=== PATIENT | female | born 1985 | race Caucasian/White ===

== ENCOUNTER 2016-11-20 16:10 | Emergency (ER) | payer MEDICAID ==
[2016-11-20] MEDS ORDERED: Albuterol 0.083% 2.5 MG/3 ML Neb Soln NEB ONE (16:21)
[2016-11-20] MEDS ORDERED: methylPREDNISolone Sodium Succinate 125 MG/2 ML SDV IVPUSH ONE (16:21)
--- NOTE | 2016-11-20 16:36 | EDM.PDOC ---
ED HISTORY OF PRESENT ILLNESS - General Chief Complaint: Respiratory Problem Stated Complaint: SOB, ASTHMA ATTACK Time Seen by Provider: 11/20/16 16:15 Source of Information: Reports: Patient History Limitations: Reports: No limitations - History of Present Illness INITIAL COMMENTS - FREE TEXT/NARRATIVE: She presents for evaluation and treatment of wheezing shortness of breath. Patient reports that she woke suddenly around 2 AM this morning with wheezing and shortness of breath. She feels she is having an asthma attack. She does have a history of asthma and is currently on an albuterol nebulizer and inhaler at home. She states that she has been using using it heavily today. She is not finding relief of her symptoms. She is complaining of shortness of breath and tachypnea. She reports wheezing. She denies any pain but reports exhaustion. She states that she has not been ill with any illnesses recently. patient denies any fevers, chills, coughs or cold symptoms. Patient is a current every day smoker. She states that she has not had any cigarettes today due to her asthma exacerbation. Severity: severe Location, General: Reports: chest - Related Data Allergies/ADRs: Allergies Allergy/AdvReac Type Severity Reaction Status Date / Time Penicillins Allergy Hives Verified 11/20/16 16:16 Home Meds: Home Meds Cetirizine HCl [Zyrtec] 10 mg PO DAILY 02/22/16 [History] Albuterol Sulfate [Proair Hfa] 1 inh INH Q4HR PRN 11/20/16 [History] Albuterol/Ipratropium [DuoNeb 3.0-0.5 MG/3 ML] 3 ml INH Q4HR PRN 11/20/16 [ History] Albuterol/Ipratropium [DuoNeb 3.0-0.5 MG/3 ML] 3 ml NEB Q6HRRT #28 neb 11/20/16 [Rx] Prednisone [IMW: predniSONE] 40 mg PO WITHBREAKFAST #10 tab 11/20/16 [Rx] Past Medical History HEENT History: Reports: Allergic rhinitis Respiratory History: Reports: Asthma - Infectious Disease History Infectious Disease History: Reports: Chicken pox - Past Surgical History GI Surgical History: Reports: Hernia, inguinal Social & Family History - Tobacco Use Smoking Status *Q: Current Every Day Smoker Years of Tobacco use: 15 Packs/Tins Daily: 0.5 Used Tobacco, but Quit: No - Caffeine Use Caffeine Use: Reports: Coffee, Soda - Recreational Drug Use Recreational Drug Use: No ED ROS GENERAL - Review of Systems Review Of Systems: See Below Constitutional: Reports: fatigue. Denies: fever Respiratory: Reports: Shortness of Breath, Wheezing. Denies: Cough Cardiovascular: Denies: Chest pain ED EXAM, GENERAL - Physical Exam Exam: See Below Exam Limited By: No limitations General Appearance: alert, WD/WN, moderate distress Ears: normal external exam Nose: normal inspection, nasal flaring Throat/Mouth: Normal inspection, Normal oropharynx, Normal voice Neck: normal inspection Respiratory/Chest: respiratory distress, rhonchi (expiratory thorught the lung bhakta), wheezing (generalized throughout all lung bhakta), accessory muscle use , retractions Cardiovascular: normal peripheral pulses, no murmur, tachycardia GI/Abdominal: soft, non tender Neurological: alert, oriented, normal cognition Psychiatric: normal affect, normal mood Skin Exam: Warm, Dry Course - Vital Signs Last Recorded V/S: Last Vital Signs Temp 36.9 C 11/20/16 16:19 Pulse 109 H 11/20/16 18:30 Resp 19 11/20/16 18:30 BP 120/79 11/20/16 18:30 Pulse Ox 96 11/20/16 18:30 - Orders/Labs/Meds Labs: Laboratory Tests 11/20/16 11/20/16 Range/Units 16:19 16:19 WBC 11.61 H (3.98-10.04) K/mm3 RBC 4.75 (3.98-5.22) M/mm3 Hgb 14.0 (11.2-15.7) gm/L Hct 43.5 (34.1-44.9) % MCV 91.6 (79.4-94.8) fl MCH 29.5 (25.6-32.2) pg MCHC 32.2 (32.2-35.5) g/dl RDW Std Deviation 44.3 (36.4-46.3) fL Plt Count 343 (182-369) K/mm3 MPV 9.6 (9.4-12.3) fl Neut % (Auto) 82.1 H (34.0-71.1) % Lymph % (Auto) 10.0 L (19.3-51.7) % [place] % (Auto) 5.7 (4.7-12.5) % Eos % (Auto) 1.7 (0.7-5.8) Baso % (Auto) 0.3 (0.1-1.2) % Neut # 9.53 H (1.56-6.13) K/mm3 Lymph # 1.16 L (1.18-3.74) K/mm3 [place] # 0.66 H (0.24-0.36) K/mm3 Eos # 0.20 (0.04-0.36) K/mm3 Baso # 0.04 (0.01-0.08) K/mm3 Sodium 141 (136-145) mEq/L Potassium 3.8 (3.5-5.1) mEq/L Chloride 104 (98-107) mEq/L Carbon Dioxide 27 (21-32) mEq/L Anion Gap 13.8 (5-15) BUN 7 (7-18) mg/dL Creatinine 1.0 (0.55-1.02) mg/dL Est Cr Clr Drug Dosing TNP Estimated GFR (MDRD) > 60 (>60) mL/min BUN/Creatinine Ratio 7.0 L (14-18) Glucose 107 H (74-106) mg/dL Calcium 8.9 (8.5-10.1) mg/dL Total Bilirubin 0.4 (0.2-1.0) mg/dL AST 11 L (15-37) U/L ALT 21 (14-59) U/L Alkaline Phosphatase 72 (46-116) U/L C-Reactive Protein 0.9 (<1.0) mg/dL Total Protein 7.8 (6.4-8.2) g/dl Albumin 3.9 (3.4-5.0) g/dl Globulin 3.9 gm/dL Albumin/Globulin Ratio 1.0 (1-2) Meds: Medications Discontinued Medications Generic Name Dose Route Start Last Admin Trade Name Freq PRN Reason Stop Dose Admin Albuterol 2.5 mg 11/20/16 16:21 11/20/16 16:28 Proventil Neb Soln NEB 11/20/16 16:22 2.5 mg ONETIME ONE Administration Albuterol/Ipratropium 3 ml 11/20/16 16:39 11/20/16 16:49 Duoneb 3.0-0.5 Mg/3 Ml NEB 11/20/16 16:40 3 ml ONETIME ONE Administration Sodium Chloride 1,000 mls @ 999 mls/hr 11/20/16 16:39 11/20/16 17:01 Normal Saline IV 11/20/16 17:39 999 mls/hr ONETIME ONE Administration Methylprednisolone Sodium Succinate 125 mg 11/20/16 16:21 11/20/16 16:26 Solu-Medrol IVPUSH 11/20/16 16:22 125 mg ONETIME ONE Administration - Radiology Interpretation Free Text/Narrative:: chest xray shows no acute intrathoracic process. - Re-Assessments/Exams Free Text/Narrative Re-Assessment/Exam: 11/20/16 18:12 Labs returned. WBC is 11.61, hgb is 14.0 and plts is 343 Sodium is 141, potassium is 3.8, chloride is 104. Anion gap is 13.8. Glucose is 107 CRP is 0.9 Reviewed the labs and xray with the patient. Patient feels improved at this time. Sats have been in the 90s during ER stay. Patient had albuterol and duoneb. Solumendrol given IV. Would like to go home. Will discharge with duonebs and prednisone. Tachypnea resolved. Tachycardia resolved. Departure - Departure Time of Disposition: 18:13 Disposition: Home, Self-Care 01 Condition: fair Clinical Impression: Exacerbation of asthma Prescriptions: Albuterol/Ipratropium [DuoNeb 3.0-0.5 MG/3 ML] 3 ml NEB Q6HRRT #28 neb Prednisone [IMW: predniSONE] 40 mg PO WITHBREAKFAST #10 tab Instructions: Asthma, Adult, [id number] Referrals: Suri Alex PA-C [Primary Care Provider] - Forms: ED Department Discharge Additional Instructions: Take the duo nebs as prescribed. One DuoNeb every 6 hours for the next 7 days. Take the prednisone as prescribed. 40 mg or 2 tabs once a day for the next 5 days. Start this medication tomorrow. may continue to use her albuterol nebulizer and inhaler as needed for shortness of breath. Follow-up with your primary care provider the end of this week or early next week if you continue to have symptoms. Please return to the ER should your symptoms change or worsen.
[2016-11-20] MEDS ORDERED: Albuterol/Ipratropium 3.0-0.5 MG/3 ML Neb Soln NEB ONE (16:39)
[2016-11-20] MEDS ORDERED: Sodium Chloride 0.9% 1,000 ML IV ONE (16:39)
[2016-11-20 18:39] VITALS: BP 120/79
--- NOTE | 2016-11-21 08:18 | CR ---
Chest: Two views of the chest were obtained. Comparison: No previous study. Heart size and mediastinum are normal. Lungs are clear. Bony structures are unremarkable. Impression: 1. Nothing acute is identified on two-view chest x-ray. Diagnostic code #1
== END 2016-11-20 18:30 | disposition home or self-care (01) ==
LOC: JD.ED 16:10
DX: J45.901 Unspecified asthma with (acute) exacerbation (principal); F17.210 Nicotine dependence, cigarettes, uncomplicated; Z88.0 Allergy status to penicillin; Z79.899 Other long term (current) drug therapy
CPT/HCPCS: 36415; 71020; 80053; 85025; 86140; 94640; 94664; 96361; 96374; 99285; J2930; J7040; 99284

== ENCOUNTER 2016-12-17 18:42 | Emergency (ER) | payer MEDICAID ==
[2016-12-17] MEDS ORDERED: Bupivacaine 0.5% 10 ML SDV INJECT ONE (19:20)
--- NOTE | 2016-12-17 19:38 | EDM.PDOC ---
ED HPI Trauma - General Chief Complaint: Upper Extremity Injury/Pain Stated Complaint: Painful finger Time Seen by Provider: 12/17/16 19:20 Source: Reports: Patient, RN notes reviewed History Limitations: Reports: No limitations - History of Present Illness INITIAL COMMENTS - FREE TEXT/NARRATIVE: 31 year old female presents to the ED with redness, pain, and swelling to her right middle finger nail bed. Symptoms started two days ago and have progressively worsened. No fever or chills. No injury. Last tetanus was 4 years ago. Allergies/ADRs: Allergies Penicillins Allergy (Verified 11/20/16 16:16) Hives Home Medications: Ambulatory Orders Cetirizine HCl [Zyrtec] 10 mg PO DAILY 02/22/16 [Confirmed 11/20/16] Albuterol Sulfate [Proair Hfa] 1 inh INH Q4HR PRN 11/20/16 [Confirmed 11/20/16] Albuterol/Ipratropium [DuoNeb 3.0-0.5 MG/3 ML] 3 ml INH Q4HR PRN 11/20/16 [ Confirmed 11/20/16] Albuterol/Ipratropium [DuoNeb 3.0-0.5 MG/3 ML] 3 ml NEB Q6HRRT #28 neb 11/20/16 Prednisone [IMW: predniSONE] 40 mg PO WITHBREAKFAST #10 tab 11/20/16 Doxycycline [Vibramycin] 100 mg PO BID #20 tablet 12/17/16 Mupirocin [Centany] 15 gm TP TID #1 oint...g. 12/17/16 Past Medical History HEENT History: Reports: Allergic rhinitis Respiratory History: Reports: Asthma Psychiatric History: Reports: Anxiety - Infectious Disease History Infectious Disease History: Reports: Chicken pox - Past Surgical History GI Surgical History: Reports: Hernia, inguinal Social & Family History - Tobacco Use Smoking Status *Q: Current Every Day Smoker Years of Tobacco use: 15 Packs/Tins Daily: 0.3 Used Tobacco, but Quit: No - Caffeine Use Caffeine Use: Reports: Coffee, Soda, Tea - Recreational Drug Use Recreational Drug Use: No Drug Use in Last 12 Months: Yes Review of Systems - Review of Systems Review Of Systems: See Below Constitutional: Reports: no symptoms. Denies: chills, fever Musculoskeletal: Reports: other (finger pain) Skin: Reports: erythema (right middle finger) Neurological: Reports: No Symptoms. Denies: Numbness, Tingling Trauma Exam - Physical Exam Exam: See Below Exam Limited By: No limitations General Appearance: Reports: alert, WD/WN, no apparent distress, anxious Respiratory Exam: Reports: no respiratory distress, lungs clear Cardiovascular: Reports: regular rate, rhythm Extremities: Reports: other (erythema and tenderness to DIP joint of right middle finger. ) Neurologic: Reports: no motor/sensory deficits, alert Skin: Reports: Other (Erythema and white discoloration to cuticle area of right middle finger) Course - Vital Signs Last Recorded V/S: Last Vital Signs Temp 98.0 F 12/17/16 19:00 Pulse 132 H 12/17/16 19:00 Resp 20 12/17/16 19:00 BP 157/117 H 12/17/16 19:00 Pulse Ox 99 12/17/16 19:00 - Orders/Labs/Meds Orders: Active Orders 24 hr Category Date Time Status CULTURE ANAEROBIC + SMEAR [RM] Stat Lab 12/17/16 19:38 Uncollected CULTURE WOUND [RM] Stat Lab 12/17/16 19:29 Ordered Meds: Medications Discontinued Medications Generic Name Dose Route Start Last Admin Trade Name Freq PRN Reason Stop Dose Admin Bupivacaine HCl 10 ml 12/17/16 19:20 12/17/16 19:26 Sensorcaine-Mpf 0.5% INJECT 12/17/16 19:21 10 ml ONETIME ONE Administration Doxycycline Hyclate 100 mg 12/17/16 19:51 Vibramycin PO 12/17/16 19:52 ONETIME ONE - Re-Assessments/Exams Free Text/Narrative Re-Assessment/Exam: Procedural consent was signed. Digital block performed to right middle finger. Then paronchyia incision and drainage was performed with 18 gauge needle to the radial side of the finger nail. Cultures sent. Patient is allergic to PCN, will start on doxycyline and bactroban ointment. Educated on wound care and return precautions. Departure - Departure Time of Disposition: 19:52 Disposition: Home, Self-Care 01 Condition: good Clinical Impression: Status post incision and drainage Paronychia of finger Qualifiers: Laterality: right Qualified Code(s): L03.011 - Cellulitis of right finger Prescriptions: Doxycycline [Vibramycin] 100 mg PO BID #20 tablet Mupirocin [Centany] 15 gm TP TID #1 oint...g. Referrals: Suri Alex PA-C [Primary Care Provider] - Forms: ED Department Discharge Additional Instructions: Soak the affected finger or toe in warm water for 20 minutes, 3 times a day. Cover with bandaid Your prescriptions were sent to [facility] Doxycycline 100mg twice a day for 10 days Mupirocin 2-3 times a day, apply after soaks - My Orders Last 24 Hours: My Active Orders 12/17/16 19:29 CULTURE WOUND [RM] Stat 12/17/16 19:38 CULTURE ANAEROBIC + SMEAR [RM] Stat - Assessment/Plan Last 24 Hours: My Active Orders 12/17/16 19:29 CULTURE WOUND [RM] Stat 12/17/16 19:38 CULTURE ANAEROBIC + SMEAR [RM] Stat
[2016-12-17] MEDS ORDERED: Doxycycline 100 MG Cap PO ONE (19:51)
[2016-12-17 20:11] VITALS: BP 144/74
== END 2016-12-17 20:00 | disposition home or self-care (01) ==
LOC: JD.ED 18:42
DX: L03.011 Cellulitis of right finger (principal); Z88.0 Allergy status to penicillin; J30.9 Allergic rhinitis, unspecified; J45.909 Unspecified asthma, uncomplicated; F41.9 Anxiety disorder, unspecified; F17.200 Nicotine dependence, unspecified, uncomplicated; Z79.899 Other long term (current) drug therapy
CPT/HCPCS: 10060; 64450; 87075; 87205; 99284; A9270; 87077; 87186; 99283-25

== ENCOUNTER 2017-05-15 12:17 | Emergency (ER) | payer MEDICAID ==
[2017-05-15 12:26] VITALS: BP 140/95
--- NOTE | 2017-05-15 13:20 | EDM.PDOC ---
ED HPI GENERAL MEDICAL PROBLEM - General Chief Complaint: Skin Complaint Stated Complaint: INSECT BITE TO LEFT LEG Time Seen by Provider: 05/15/17 13:00 Source of Information: Reports: Patient History Limitations: Reports: No Limitations - History of Present Illness INITIAL COMMENTS - FREE TEXT/NARRATIVE: 32-year-old female presents for evaluation treatment of erythema and discomfort to the posterior left lower leg. Reports she first noticed the symptoms yesterday. She reports yesterday she was helping family members move. She questions if she has been by a bug or spider. She has appreciated erythema, increased warmth and discomfort to the posterior left lower leg. She also reports a pustule that has opened and drained a small amount of purulent fluid. She reports associated symptoms of fevers, chills and nausea. She has not taken her temperature but has felt fevers. No treatment such as Tylenol, Motrin, etc. prior to arrival in the ER. No vomiting. Patient reports that she has had multiple boils and abscesses in the past. She is not a diabetic. Primary care provider is Suri Alex. Left Lower Leg Pain Score (Numeric/FACES): 7 - Related Data Allergies Allergy/AdvReac Type Severity Reaction Status Date / Time Penicillins Allergy Hives Verified 05/15/17 12:26 Home Meds: Home Meds Cetirizine HCl [Zyrtec] 10 mg PO DAILY 02/22/16 [History] Prednisone [IMW: predniSONE] 40 mg PO WITHBREAKFAST #10 tab 11/20/16 [Rx] Budesonide/Formoterol Fumarate [Symbicort 160-4.5 Mcg Inhaler] 2 puff IH BID 08/19 [History] Doxycycline [Vibramycin] 100 mg PO Q12HR #20 cap 05/15/17 [Rx] Fluticasone Propionate [Flonase] 1 gm NASBOTH DAILY 05/15/17 [History] PARoxetine [Paxil] 20 mg PO DAILY 05/15/17 [History] Past Medical History HEENT History: Reports: Allergic Rhinitis Respiratory History: Reports: Asthma Psychiatric History: Reports: Anxiety - Infectious Disease History Infectious Disease History: Reports: Chicken Pox - Past Surgical History GI Surgical History: Reports: Hernia, Inguinal Female Surgical History: Reports: Tubal Ligation Social & Family History - Tobacco Use Smoking Status *Q: Current Every Day Smoker Years of Tobacco use: 20 Packs/Tins Daily: 0.5 Used Tobacco, but Quit: No - Caffeine Use Caffeine Use: Reports: Coffee, Soda, Tea - Recreational Drug Use Recreational Drug Use: No Drug Use in Last 12 Months: Yes ED ROS GENERAL - Review of Systems Review Of Systems: See Below Constitutional: Reports: Fever, Chills GI/Abdominal: Reports: Nausea. Denies: Vomiting Skin: Reports: Erythema (left posterior lower leg), Lumps (left posterior lower leg pustule) ED EXAM, SKIN/RASH Exam: See Below Exam Limited By: No Limitations General Appearance: Alert, WD/WN, No Apparent Distress Respiratory/Chest: No Respiratory Distress, Lungs Clear, Normal Breath Sounds Cardiovascular: Normal Peripheral Pulses, Regular Rate, Rhythm, No Murmur Peripheral Pulses: 3+: Posterior Tibial (L), Posterior Tibial (R) Neurological: Alert, Oriented Psychiatric: Normal Affect, Normal Mood Skin: Warm, Dry, Erythema (approximately 15cm x 10 cm area of erythema to the posterior left lower leg with an approximate 3cm deeper reddened area with several small 3-7mm pustules in the center) Location, Skin: Lower Extremity, Left Characteristics: Papular, Erythematous. No: Necrotic Associated features: Warmth, Tenderness Course - Vital Signs Last Recorded V/S: Last Vital Signs Temp 36.7 C 05/15/17 12:22 Pulse 105 H 05/15/17 12:22 Resp 16 05/15/17 12:22 BP 140/95 H 05/15/17 12:22 Pulse Ox 98 05/15/17 12:22 - Re-Assessments/Exams Free Text/Narrative Re-Assessment/Exam: 05/15/17 13:17 Culture obtained. Area of erythema was outlined. I will start her on doxycycline have her follow-up with her primary care provider early next week for recheck. Discharge instructions this document. Departure - Departure Time of Disposition: 13:18 Disposition: Home, Self-Care 01 Condition: Good Clinical Impression: Cellulitis and abscess of leg - Discharge Information Prescriptions: Doxycycline [Vibramycin] 100 mg PO Q12HR #20 cap Instructions: Cellulitis, Adult, Abscess, [id number] Referrals: Suri Alex PA-C [Primary Care Provider] - Forms: ED Department Discharge Additional Instructions: Take the doxycycline as prescribed. 1 tab twice a day for 10 days. This has been escribed to [facility]. Doxycycline can cause photosensitivity. Make sure you wear sunscreen while you are in the sun or avoid sun if possible. Recommend taking the doxycycline with food. [id number] Tylenol or Motrin as needed for pain relief. Warm compress for about 10-15 minutes 3 or 4 times a day. Follow-up with your primary care provider next week for recheck of your symptoms. Expect the erythema to increase slightly before your symptoms improve. We would like to see back in the ER if you notice a significant change or any other concerning symptoms. Please return to the ER for any problems, questions or concerns.
== END 2017-05-15 13:25 | disposition home or self-care (01) ==
LOC: JD.ED 12:17
DX: L03.116 Cellulitis of left lower limb (principal); J45.909 Unspecified asthma, uncomplicated; F41.9 Anxiety disorder, unspecified; F17.210 Nicotine dependence, cigarettes, uncomplicated; Z98.51 Tubal ligation status; Z98.890 Other specified postprocedural states; Z79.899 Other long term (current) drug therapy; Z88.0 Allergy status to penicillin
CPT/HCPCS: 87070; 87077; 87186; 99283

== ENCOUNTER 2017-12-24 21:06 | Emergency (ER) | payer MEDICAID ==
[2017-12-24 21:18] VITALS: BP 161/114
[2017-12-24] MEDS ORDERED: Azithromycin 250 MG Tab PO STA (21:55)
[2017-12-24] MEDS ORDERED: Acetaminophen/HYDROcodone 325-5 MG Tab PO ONE (21:56)
--- NOTE | 2017-12-24 22:02 | EDM.PDOC ---
ED HPI GENERAL MEDICAL PROBLEM - General Chief Complaint: ENT Problem Stated Complaint: EAR HURT AND IS BLEEDING Time Seen by Provider: 12/24/17 21:29 Source of Information: Reports: Patient, Family () History Limitations: Reports: No Limitations - History of Present Illness INITIAL COMMENTS - FREE TEXT/NARRATIVE: The patient states that she developed cold-like symptoms around 12/16/2017. She had nasal congestion this morning. She blew her nose, and her right ear popped. There was no initial pain. The patient instilled hydrogen peroxide into the right ear canal this morning. The ear has been achy today. The patient states that around 21:30 this evening, she rolled over in bed, and had sudden severe pain to her right ear, and she found blood coming out of the ear canal. The patient states that she had frequent ear infections as a child, but has not had any problems since. The patient's PCP is Suri Alex. Right Ear Pain Score (Numeric/FACES): 7 - Related Data Allergies Allergy/AdvReac Type Severity Reaction Status Date / Time Penicillins Allergy Hives Verified 12/24/17 21:18 Home Meds: Home Meds Cetirizine HCl [Zyrtec] 10 mg PO DAILY 02/22/16 [History] Budesonide/Formoterol Fumarate [Symbicort 160-4.5 Mcg Inhaler] 2 puff IH BID 08/19 [History] Fluticasone Propionate [Flonase] 1 gm NASBOTH DAILY 05/15/17 [History] PARoxetine [Paxil] 20 mg PO DAILY 05/15/17 [History] Acetaminophen/HYDROcodone [Joseph 325-5 MG] 1 - 2 tab PO Q6H PRN #12 tablet 12/24 [Rx] Azithromycin [IJD: Azithromycin] 1 tab PO QPM #4 tab 12/24/17 [Rx] Past Medical History HEENT History: Reports: Allergic Rhinitis Respiratory History: Reports: Asthma Psychiatric History: Reports: Anxiety - Infectious Disease History Infectious Disease History: Reports: Chicken Pox - Past Surgical History HEENT Surgical History: Reports: Other (See Below) (Left external ear cyst excision) GI Surgical History: Reports: Hernia, Inguinal (left) Female Surgical History: Reports: Tubal Ligation Musculoskeletal Surgical History: Reports: Carpal Tunnel (right), Other (See Below) (Right wrist ganglion cyst excision) Social & Family History - Family History Family Medical History: Noncontributory - Tobacco Use Smoking Status *Q: Current Every Day Smoker Years of Tobacco use: 20 Packs/Tins Daily: 0.2 Packs/Tins Daily Comment: Down from 1.5 ppd - Caffeine Use Caffeine Use: Reports: Coffee, Soda, Tea - Alcohol Use Alcohol Use History: Yes Alcohol Use Frequency: Socially - Recreational Drug Use Recreational Drug Use: No - Living Situation & Occupation Living situation: Reports: , with Spouse Occupation: Unemployed ED ROS ENT - Review of Systems Review Of Systems: ROS reveals no pertinent complaints other than HPI. ED EXAM, ENT - Physical Exam Exam: See Below Exam Limited By: No Limitations General Appearance: Alert, WD/WN, Mild Distress (holding her right ear) Eye Exam: Bilateral Eye: Normal Inspection Ears: Other (Left ear canal and TM normal. There is blood in the right external auditory canal. Tympanic membrane is not visualized, suggesting extensive perforation) Nose: Normal Inspection, No Blood, Other (Bilateral nasal mucosal edema) Mouth/Throat: Normal Inspection, Normal Gums, Normal Lips, Normal Oropharynx, Normal Teeth Head: Atraumatic, Normocephalic Neck: Normal Inspection, Supple, Non-Tender, Full Range of Motion. No: Lymphadenopathy (L), Lymphadenopathy (R) Course - Vital Signs Last Recorded V/S: Last Vital Signs Temp 37.1 C 12/24/17 21:15 Pulse 78 12/24/17 21:15 Resp 18 12/24/17 21:15 BP 161/114 H 12/24/17 21:15 Pulse Ox 99 12/24/17 21:15 - Orders/Labs/Meds Meds: Medications Discontinued Medications Generic Name Dose Route Start Last Admin Trade Name Nathanq PRN Reason Stop Dose Admin Hydrocodone Bitart/Acetaminophen 2 tab 12/24/17 21:56 12/24/17 21:59 Joseph 325-5 Mg PO 12/24/17 21:57 2 tab ONETIME ONE Administration Azithromycin 500 mg 12/24/17 21:55 12/24/17 21:59 Zithromax PO 12/24/17 21:56 500 mg ONETIME STA Administration - Re-Assessments/Exams Free Text/Narrative Re-Assessment/Exam: 12/24/17 21:56 On examination, it appears that the patient has perforated her right tympanic membrane. I suspect this is due to right otitis media, and will therefore start the patient on an antibiotic. Because the patient reports a severe allergic reaction to penicillin, I will start her on azithromycin, and prescribe a five- day course. I will also prescribe some Joseph, although I would like the majority of her pain relief to be from ibuprofen. I will refer the patient to Dr. Schmidt, ENT. Departure - Departure Time of Disposition: 21:58 Disposition: Home, Self-Care 01 Condition: Fair Clinical Impression: Perforation of right tympanic membrane - Discharge Information Prescriptions: Acetaminophen/HYDROcodone [Joseph 325-5 MG] 1 - 2 tab PO Q6H PRN #12 tablet PRN Reason: Pain (Severe 7-10) Azithromycin [IJD: Azithromycin] 1 tab PO QPM #4 tab Instructions: Eardrum Perforation, [id number] Referrals: Suri Alex PA-C [Primary Care Provider] - Chema Schmidt MD [Ordering Only Provider] - Forms: ED Department Discharge Additional Instructions: You were seen in the emergency room for right ear pain and bleeding from your right ear canal. On examination, it appears that you have perforated your right tympanic membrane. This is likely due to an infection of your right middle ear. You have been started on the antibiotic azithromycin. A prescription has been given to. Take one tablet every evening, starting tomorrow evening, Sunday, . Finish the entire prescription unless told otherwise by your doctor. Take [id number] ibuprofen 2-3 tablets (400-600 mg) every 8 hours, with food, as needed for ear pain. Take one to 2 tablets Joseph up to every 6 hours, as needed for pain not relieved by ibuprofen. If you take Joseph, do not drive for 10 hours afterwards. Joseph may cause constipation, so consider taking a stool softener. Follow-up with the ENT Dr. Chema Schmidt at the next available appointment. If any other problems, please do not hesitate to return to the ER.
== END 2017-12-24 22:07 | disposition home or self-care (01) ==
LOC: JD.ED 21:06
DX: H72.91 Unspecified perforation of tympanic membrane, right ear (principal); J45.909 Unspecified asthma, uncomplicated; F41.9 Anxiety disorder, unspecified; F17.210 Nicotine dependence, cigarettes, uncomplicated; Z88.0 Allergy status to penicillin; Z79.899 Other long term (current) drug therapy
CPT/HCPCS: 99283; A9270

== ENCOUNTER 2018-09-20 16:30 | Emergency (ER) | payer MEDICAID ==
[2018-09-20 17:00] VITALS: BP 165/104
[2018-09-20] MEDS ORDERED: Sucralfate Suspension 1 GM/10 ML Cup PO ONE (17:20)
[2018-09-20] MEDS ORDERED: Sodium Chloride 0.9% 1,000 ML IV ONE (17:20)
[2018-09-20] MEDS ORDERED: Alum Hydrox/Mag Hydrox/Simeth 30 ML, Lidocaine 2% 15 ML PO ONE ×2 (17:20)
[2018-09-20] MEDS ORDERED: Pantoprazole 40 MG Vial IVPUSH ONE (17:20)
--- NOTE | 2018-09-20 17:28 | EDM.PDOC ---
ED HPI GENERAL MEDICAL PROBLEM - General Chief Complaint: Abdominal Pain Stated Complaint: ABDOMINAL PAIN/VOMITING Time Seen by Provider: 09/20/18 17:02 Source of Information: Reports: Patient History Limitations: Reports: No Limitations - History of Present Illness INITIAL COMMENTS - FREE TEXT/NARRATIVE: Patient is a 33-year-old female presents ED complaining of epigastric discomfort. States this is been ongoing issue for the past year. States over the past few weeks the symptoms have grown increasingly worse. She states she has increased acid reflux with eating and drinking. She's been mildly nauseated with no emesis. She has been taking Zantac on intermittent basis. As a recent she's been taking a lot more Tums and Rolaids. She did go to the walk-in clinic today and they did obtain some basic labs and EKG. They sent the patient here for further examination with concerns this may be related to her heart. EKG showed some slight depression in the anterior leads. In addition the blood work indicated she had a low potassium and low hemoglobin. The hemoglobin has decreased from the previous blood work was one year ago. Patient denies any dark tarry stools, vomiting of blood, bloody stool, fever, shortness breath, chest pain, dysuria, hematuria, dizziness, palpitations, or any additional complaints. She's not been taking excessive amounts of NSAIDs. Nor does she consume alcohol on a regular basis. She smokes one quarter pack of cigarettes a day. Caffeine use is minimal. There has been no recent weight loss, night sweats , dysuria, or any additional concerns. She has no history of gastritis, bleeding ulcers, and/or H. pylori. She has never had EGD or colonoscopy. Upper Abdomen Pain Score (Numeric/FACES): 7 - Related Data Allergies Allergy/AdvReac Type Severity Reaction Status Date / Time Penicillins Allergy Hives Verified 12/24/17 21:18 Home Meds: Home Meds Budesonide/Formoterol Fumarate [Symbicort 160-4.5 Mcg Inhaler] 2 puff IH BID 08/19 [History] Albuterol [Proventil HFA] 2 puff INH ASDIRECTED 09/20/18 [History] Calcium Carbonate [Tums] 1 tab PO ASDIRECTED 09/20/18 [History] Cetirizine [ZyrTEC] 10 mg PO DAILY 09/20/18 [History] Clindamycin HCl 150 mg PO QID #40 capsule 09/20/18 [Rx] Ferrous Sulfate 325 mg PO QAM #30 tablet 09/20/18 [Rx] LORazepam [Ativan] 0.5 mg PO ASDIRECTED 09/20/18 [History] Magnesium Oxide [Magnesium] 400 mg PO QAM #30 capsule 09/20/18 [Rx] Ondansetron [Zofran ODT] 4 mg PO Q6H PRN #10 tab.dis 09/20/18 [Rx] Pantoprazole Sodium [Protonix] 40 mg PO QAM #30 tablet.dr 09/20/18 [Rx] Potassium Chloride 20 meq PO BID #60 tablet.er 09/20/18 [Rx] Sucralfate [Carafate] 1 gm PO QID #20 tablet 09/20/18 [Rx] Past Medical History HEENT History: Reports: Allergic Rhinitis Respiratory History: Reports: Asthma Psychiatric History: Reports: Anxiety - Infectious Disease History Infectious Disease History: Reports: Chicken Pox - Past Surgical History HEENT Surgical History: Reports: Other (See Below) GI Surgical History: Reports: Hernia, Inguinal Female Surgical History: Reports: Tubal Ligation Musculoskeletal Surgical History: Reports: Carpal Tunnel, Other (See Below) Social & Family History - Family History Family Medical History: Noncontributory - Tobacco Use Smoking Status *Q: Current Every Day Smoker Years of Tobacco use: 20 Packs/Tins Daily: 0.3 - Caffeine Use Caffeine Use: Reports: Coffee, Soda, Tea - Recreational Drug Use Recreational Drug Use: No - Living Situation & Occupation Living situation: Reports: , with Spouse Occupation: Unemployed ED ROS GENERAL - Review of Systems Review Of Systems: ROS reveals no pertinent complaints other than HPI. ED EXAM, GI/ABD - Physical Exam Exam: See Below Exam Limited By: No Limitations General Appearance: Alert, WD/WN, Mild Distress Ears: Hearing Grossly Normal Nose: Normal Inspection Throat/Mouth: Normal Voice, No Airway Compromise Head: Atraumatic, Normocephalic Neck: Normal Inspection, Supple Respiratory/Chest: No Respiratory Distress, Lungs Clear, Normal Breath Sounds, No Accessory Muscle Use, Chest Non-Tender Cardiovascular: Normal Peripheral Pulses, Regular Rate, Rhythm, No Murmur GI/Abdominal Exam: Soft, No Organomegaly, No Distention, No Mass, Tender ( epigastric, LUQ, LLQ), Abnormal Bowel Sounds. No: Distended, Guarding, Rigid, Rebound Back Exam: Normal Inspection. No: CVA Tenderness (L), CVA Tenderness (R) Extremities: Normal Inspection, Normal Range of Motion, Non-Tender, No Pedal Edema, Normal Capillary Refill Neurological: Alert, Oriented, CN II-XII Intact, Normal Cognition, Normal Gait, No Motor/Sensory Deficits Psychiatric: Normal Affect, Normal Mood Course - Vital Signs Last Recorded V/S: Last Vital Signs Temp 99.5 F 09/20/18 16:58 Pulse 110 H 09/20/18 16:58 Resp 20 09/20/18 16:58 BP 165/104 H 09/20/18 16:58 Pulse Ox 99 09/20/18 16:58 - Orders/Labs/Meds Labs: Laboratory Tests 09/20/18 09/20/18 09/20/18 Range/Units 17:30 17:30 17:30 WBC (3.98-10.04) K/mm3 RBC (3.98-5.22) M/mm3 Hgb (11.2-15.7) gm/L Hct (34.1-44.9) % MCV (79.4-94.8) fl MCH (25.6-32.2) pg MCHC (32.2-35.5) g/dl RDW Std Deviation (36.4-46.3) fL Plt Count (182-369) K/mm3 MPV (9.4-12.3) fl Neutrophils % (Manual) (40-60) % Band Neutrophils % (0-10) % Lymphocytes % (Manual) (20-40) % Atypical Lymphs % % Monocytes % (Manual) (2-10) % Eosinophils % (Manual) (0.7-5.8) % Basophils % (Manual) (0.1-1.2) Platelet Estimate Plt Morphology Comment Hypochromasia Anisocytosis Microcytosis RBC Morph Comment PT (9.5-12.1) SECONDS INR APTT (24-31) SECONDS Sodium 139 (136-145) mEq/L Potassium 2.6 L (3.5-5.1) mEq/L Chloride 95 L (98-107) mEq/L Carbon Dioxide 34 H (21-32) mEq/L Anion Gap 12.6 (5-15) BUN 8 (7-18) mg/dL Creatinine 1.1 H (0.55-1.02) mg/dL Est Cr Clr Drug Dosing 72.01 mL/min Estimated GFR (MDRD) 57 (>60) mL/min BUN/Creatinine Ratio 7.3 L (14-18) Glucose 101 (74-106) mg/dL Calcium 11.2 H (8.5-10.1) mg/dL Magnesium (1.8-2.4) mg/dl Total Bilirubin 0.3 (0.2-1.0) mg/dL AST 17 (15-37) U/L ALT 22 (14-59) U/L Alkaline Phosphatase 102 (46-116) U/L Troponin I < 0.017 (0.00-0.056) ng/mL C-Reactive Protein 0.6 (<1.0) mg/dL Total Protein 8.2 (6.4-8.2) g/dl Albumin 3.6 (3.4-5.0) g/dl Globulin 4.6 gm/dL Albumin/Globulin Ratio 0.8 L (1-2) Lipase 163 (73-393) U/L Urine Color Yellow (Yellow) Urine Appearance Slt cloudy H (Clear) Urine pH 8.5 H (5.0-8.0) Ur Specific [place] 1.020 (1.005-1.030) Urine Protein Negative (Negative) Urine Glucose (UA) Negative (Negative) Urine Ketones Negative (Negative) Urine Occult Blood Negative (Negative) Urine Nitrite Negative (Negative) Urine Bilirubin Negative (Negative) Urine Urobilinogen 0.2 (0.2-1.0) Ur Leukocyte Esterase Negative (Negative) Urine RBC 0-5 (0-5) /hpf Urine WBC 0-5 (0-5) /hpf Ur Epithelial Cells 5-10 H (0-5) /hpf Amorphous Sediment Moderate H (NOT SEEN) /hpf Urine Bacteria Few (FEW) /hpf Urine Mucus Not seen (FEW) /hpf Urine HCG, Qual Negative (NEGATIVE) 09/20/18 09/20/18 09/20/18 Range/Units 17:30 17:30 17:30 WBC 7.68 (3.98-10.04) K/mm3 RBC 4.61 (3.98-5.22) M/mm3 Hgb 9.9 L (11.2-15.7) gm/L Hct 34.2 (34.1-44.9) % MCV 74.2 L (79.4-94.8) fl MCH 21.5 L (25.6-32.2) pg MCHC 28.9 L (32.2-35.5) g/dl RDW Std Deviation 43.6 (36.4-46.3) fL Plt Count 494 H (182-369) K/mm3 MPV 9.5 (9.4-12.3) fl Neutrophils % (Manual) 72 H (40-60) % Band Neutrophils % 0 (0-10) % Lymphocytes % (Manual) 21 (20-40) % Atypical Lymphs % 0 % Monocytes % (Manual) 6 (2-10) % Eosinophils % (Manual) 1 (0.7-5.8) % Basophils % (Manual) 0 L (0.1-1.2) Platelet Estimate Increased Plt Morphology Comment See note Hypochromasia 1+ slight Anisocytosis 1+ slight Microcytosis 1+ slight RBC Morph Comment Not Reportable PT 9.9 (9.5-12.1) SECONDS INR < 0.93 APTT 24 (24-31) SECONDS Sodium (136-145) mEq/L Potassium (3.5-5.1) mEq/L Chloride (98-107) mEq/L Carbon Dioxide (21-32) mEq/L Anion Gap (5-15) BUN (7-18) mg/dL Creatinine (0.55-1.02) mg/dL Est Cr Clr Drug Dosing mL/min Estimated GFR (MDRD) (>60) mL/min BUN/Creatinine Ratio (14-18) Glucose (74-106) mg/dL Calcium (8.5-10.1) mg/dL Magnesium 1.3 L (1.8-2.4) mg/dl Total Bilirubin (0.2-1.0) mg/dL AST (15-37) U/L ALT (14-59) U/L Alkaline Phosphatase (46-116) U/L Troponin I (0.00-0.056) ng/mL C-Reactive Protein (<1.0) mg/dL Total Protein (6.4-8.2) g/dl Albumin (3.4-5.0) g/dl Globulin gm/dL Albumin/Globulin Ratio (1-2) Lipase (73-393) U/L Urine Color (Yellow) Urine Appearance (Clear) Urine pH (5.0-8.0) Ur Specific [place] (1.005-1.030) Urine Protein (Negative) Urine Glucose (UA) (Negative) Urine Ketones (Negative) Urine Occult Blood (Negative) Urine Nitrite (Negative) Urine Bilirubin (Negative) Urine Urobilinogen (0.2-1.0) Ur Leukocyte Esterase (Negative) Urine RBC (0-5) /hpf Urine WBC (0-5) /hpf Ur Epithelial Cells (0-5) /hpf Amorphous Sediment (NOT SEEN) /hpf Urine Bacteria (FEW) /hpf Urine Mucus (FEW) /hpf Urine HCG, Qual (NEGATIVE) Meds: Medications Discontinued Medications Generic Name Dose Route Start Last Admin Trade Name Freq PRN Reason Stop Dose Admin Al Hydroxide/Mg Hydroxide 30 0 ml 09/20/18 17:20 09/20/18 17:54 ml/ Lidocaine HCl 15 ml PO 09/20/18 17:21 45 ml ONETIME ONE Administration Diatrizoate Meglum/Diatrizoate Sod 90 ml 09/20/18 18:48 09/20/18 19:26 Gastrografin 37% PO 09/20/18 18:49 90 ml ONETIME ONE Administration Sodium Chloride 1,000 mls @ 250 mls/hr 09/20/18 17:20 09/20/18 17:51 Normal Saline IV 09/20/18 21:19 250 mls/hr ONETIME ONE Administration Potassium Chloride 10 meq/ 100 mls @ 100 mls/hr 09/20/18 19:14 09/20/18 19:38 Premix IV 09/20/18 20:13 100 mls/hr ASDIRECTED ONE Administration Potassium Chloride 10 meq/ 100 mls @ 100 mls/hr 09/20/18 19:14 09/20/18 20:48 Premix IV 09/20/18 20:13 100 mls/hr Q1H ONE Administration Magnesium Sulfate 2 gm/ Premix 50 mls @ 25 mls/hr 09/20/18 19:49 09/20/18 20: 17 IV 09/20/18 21:48 25 mls/hr ONETIME ONE Administration Iopamidol 100 ml 09/20/18 18:48 09/20/18 19:26 Isovue-300 (61%) IVPUSH 09/20/18 18:49 100 ml ONETIME ONE Administration Metoclopramide HCl 7.5 mg 09/20/18 19:12 09/20/18 19:17 Reglan IVPUSH 09/20/18 19:13 7.5 mg ONETIME ONE Administration Pantoprazole Sodium 40 mg 09/20/18 17:20 09/20/18 17:52 Protonix Iv IVPUSH 09/20/18 17:21 40 mg ONETIME ONE Administration Sodium Chloride 10 ml 09/20/18 17:20 09/20/18 19:26 Saline Flush FLUSH 10 ml ASDIRECTED PRN Administration Keep Vein Open Sucralfate 1 gm 09/20/18 17:20 09/20/18 17:53 Carafate PO 09/20/18 17:21 1 gm ONETIME ONE Administration - Re-Assessments/Exams Free Text/Narrative Re-Assessment/Exam: Patient has discomfort to the epigastric, left upper quadrant, left lower quadrant. She's been nauseated and having multiple episodes of emesis. In addition today labs indicated hemoglobin has dropped from 12-9.9. She's had no dark tarry stools, bloody stools, or any other concerns for GI bleed. She has no history of bleeding in the past. She has no IV will be obtained with normal saline, Protonix 40 mg IVP, Carafate 1 g by mouth, and GI cocktail by mouth. Pain is moderate in intensity. Initial labs and studies will include: CBC, chem 14, CRP, lipase, UA, hCG, and CT of the abdomen and pelvis with oral and IV contrast. EKG obtained [facility] at [facility] indicated sinus tachycardia rate of 108, QTC of 516, normal IN interval, mild ST depression in anterior leads. EKG were repeated here in the ED. Labs reviewed: Blood cell count 7.68, hemoglobin 9.9, platelet count 494, potassium 2.6, CO2 34, AG 12.6, creatinine 1.1, calcium is 11.2, troponin within normal limits, lipase normal. Repeat EKG sinus tachycardia rate of [address] changes noted. QTC 471. IN 141. I ordered 2 potassium riders and serum magnesium level. Stool Hemoccult came back faintly positive for blood. UA slightly cloudy appearance, pH 8.5, urine epithelial cells 5-10, amorphous sediment moderate. 1914 per nursing staff patient is nauseated after drinking the oral contrast. I ordered Reglan 7.5 mg IV. Magnesium 1.3. Ordered [address] of the abdomen and pelvis results are not present at this time. 09/20/18 20:08 CT of the abdomen and pelvis impression: Moderately large hiatal hernia. Other incidental findings. Nothing acute is appreciated on CT study of the abdomen and pelvis. 2016 Reassessment, patient has really no significant complaints at this time. I did discuss results of CT study with the patient. During her conversation she was wondering if she can be discharged home with a prescription for an antibiotic for a dental infection. She does have a small apical abscess to the 31 tooth on the lateral side.Once potassium and magnesium has been infused. Patient will be discharged home with instructions for dental infection, hypomagnesium, hypokalemia, and suspected upper GI bleed with positive Hemoccult test. Patient to be discharged with prescription for Carafate, potassium chloride, Slow-Mag, Zofran, clindamycin, and ferrous sulfate. 2150 Patients BP stable. HR 98 variable. She has no complaints at this time. Denies recreational drug use. Potassium drip still running. Once completed she will be discharged home. Departure - Departure Time of Disposition: 21:51 Disposition: Home, Self-Care 01 Condition: Good Clinical Impression: Upper GI bleed, Hypokalemia, Hypomagnesemia, Dental infection, Hypercalcemia Anemia Qualifiers: Anemia type: unspecified type Qualified Code(s): D64.9 - Anemia, unspecified Gastritis Qualifiers: Gastritis type: unspecified gastritis Chronicity: acute Gastritis bleeding: with bleeding Qualified Code(s): K29.01 - Acute gastritis with bleeding - Discharge Information Prescriptions: Clindamycin HCl 150 mg PO QID #40 capsule Ferrous Sulfate 325 mg PO QAM #30 tablet Magnesium Oxide [Magnesium] 400 mg PO QAM #30 capsule Ondansetron [Zofran ODT] 4 mg PO Q6H PRN #10 tab.dis PRN Reason: Nausea/Vomiting Pantoprazole Sodium [Protonix] 40 mg PO QAM #30 tablet.dr Potassium Chloride 20 meq PO BID #60 tablet.er Sucralfate [Carafate] 1 gm PO QID #20 tablet Instructions: Gastritis, Adult, [id number], Hypercalcemia, Upper Gastrointestinal Bleeding, Dental Abscess, [id number], Hypomagnesemia, Hypokalemia, Nausea and Vomiting, Adult, [id number] Referrals: Suri Alex PA-C [Primary Care Provider] - Forms: ED Department Discharge Additional Instructions: Please take the potassium, magnesium, iron replacement, Carafate, Protonix, clindamycin, and Zofran as prescribed. Call and make an appointment to see a general surgeon of your choice for EGD and colonoscopy. Follow-up with your PCP this coming week for reevaluation to recheck chemistry panel for low potassium , low magnesium, and further iron studies. See a dentist for definitive treatment for dental abscess to the light lower jaw. Stay away from any foods or beverages that cause increased aggravation to your stomach. Refrain from utilizing ibuprofen, Aleve, or any other form of NSAIDs. Refrain from ingestion of Tums or Rolaids.
[2018-09-20] MEDS: Sodium Chloride 0.9% 10 ML Syringe FLUSH PRN ×2 (17:56→19:26)
[2018-09-20] MEDS ORDERED: Diatrizoate Meglumine/Diatrizoate Sodium 37% 120 ML Bottle PO ONE (18:48)
[2018-09-20] MEDS ORDERED: Iopamidol 612 MG/ML 100 ML Bottle IVPUSH ONE (18:48)
[2018-09-20] MEDS ORDERED: Metoclopramide 10 MG/2 ML SDV IVPUSH ONE (19:12)
[2018-09-20] MEDS ORDERED: Potassium Chloride 10 MEQ in Premix Bag 1 BAG IV ONE ×4 (19:14)
--- NOTE | 2018-09-20 19:45 | CT ---
CT abdomen and pelvis Technique: Multiple axial sections were obtained from above the dome of the diaphragm inferiorly to the pubic symphysis. Intravenous and oral contrast was utilized. Delayed images were obtained of the bladder. Comparison: No prior abdominal imaging is available. Findings: Small portion of the visualized lung bases are clear. Moderately large hiatal hernia is seen. Small low density finding is seen within the dome of the right lobe of the liver measuring approximately 6 mm compatible with small cyst. No additional abnormality is identified within the liver. Spleen appears within normal limits. Adrenal glands show no nodule. Kidneys show symmetric contrast enhancement without hydronephrosis or mass. Pancreas is within normal limits. Gallbladder contains no calcified gallstones. Aorta shows no aneurysm. No retroperitoneal adenopathy or mesenteric abnormalities are seen. No pelvic mass or adenopathy is noted. Appendix is seen which is normal in size. Incidental surgical clips are seen within the pelvis. Delayed images shows a small amount of contrast within the bladder. Bone window settings were reviewed which shows disc space narrowing and vacuum phenomena within the L5-S1 disc. No acute osseous abnormality is seen. Impression: 1. Moderately large hiatal hernia. Other incidental findings. 2. Nothing acute is appreciated on CT study of the abdomen and pelvis. Diagnostic code #2
[2018-09-20] MEDS ORDERED: Magnesium Sulfate/Water 2 GM in Premix Bag 1 BAG IV ONE (19:49)
== END 2018-09-20 22:53 | disposition home or self-care (01) ==
LOC: JD.ED 16:30
DX: K29.01 Acute gastritis with bleeding (principal); D64.9 Anemia, unspecified; E87.6 Hypokalemia; E83.42 Hypomagnesemia; K04.7 Periapical abscess without sinus; E83.52 Hypercalcemia; Z88.0 Allergy status to penicillin; J45.909 Unspecified asthma, uncomplicated; F17.210 Nicotine dependence, cigarettes, uncomplicated; Z79.899 Other long term (current) drug therapy
CPT/HCPCS: 36415; 74177; 80053; 81001; 81025; 83690; 83735; 84484; 85007; 85027; 85610; 85730; 86140; 93005; 99284; A9270; C9113; J2765; J3480; J7040; Q9963; Q9967; J3475

== ENCOUNTER 2019-02-05 19:52 | Emergency (ER) | payer MEDICAID ==
[2019-02-05] MEDS ORDERED: Albuterol/Ipratropium 3.0-0.5 MG/3 ML Neb Soln NEB STA (20:09)
[2019-02-05 20:12] VITALS: BP 146/119
--- NOTE | 2019-02-05 20:18 | EDM.PDOC ---
ED HPI GENERAL MEDICAL PROBLEM - General Chief Complaint: Respiratory Problem Stated Complaint: VOMITING SHORT OF BREATH Time Seen by Provider: 02/05/19 20:16 - History of Present Illness INITIAL COMMENTS - FREE TEXT/NARRATIVE: 33-year-old female presents emergency room with a one-day history of significant nausea and vomiting. She just can't stop her asthma so irritated and her stomach is hurting she has not been able to keep her Protonix to him today. She's not aware of any fevers or chills. Her asthma hasn't been getting worse but she has not been coughing up anything. She has some mild discomfort in her upper abdomen made much worse just before and after throwing up she just can't keep anything down at this point - Related Data Allergies Allergy/AdvReac Type Severity Reaction Status Date / Time Penicillins Allergy Hives Verified 02/05/19 20:12 Home Meds: Home Meds Budesonide/Formoterol Fumarate [Symbicort 160-4.5 Mcg Inhaler] 2 puff IH BID 08/19 [History] Albuterol [Proventil HFA] 2 puff INH ASDIRECTED 09/20/18 [History] Calcium Carbonate [Tums] 1 tab PO ASDIRECTED 09/20/18 [History] Cetirizine [ZyrTEC] 10 mg PO DAILY 09/20/18 [History] Clindamycin HCl 150 mg PO QID #40 capsule 09/20/18 [Rx] Ferrous Sulfate 325 mg PO QAM #30 tablet 09/20/18 [Rx] LORazepam [Ativan] 0.5 mg PO ASDIRECTED 09/20/18 [History] Magnesium Oxide [Magnesium] 400 mg PO QAM #30 capsule 09/20/18 [Rx] Ondansetron [Zofran ODT] 4 mg PO Q6H PRN #10 tab.dis 09/20/18 [Rx] Pantoprazole Sodium [Protonix] 40 mg PO QAM #30 tablet. 09/20/18 [Rx] Potassium Chloride 20 meq PO BID #60 tablet.er 09/20/18 [Rx] Sucralfate [Carafate] 1 gm PO QID #20 tablet 09/20/18 [Rx] Ondansetron [Zofran ODT] 4 mg PO Q6H PRN #6 tab.dis 02/05/19 [Rx] Past Medical History HEENT History: Reports: Allergic Rhinitis Respiratory History: Reports: Asthma Psychiatric History: Reports: Anxiety - Infectious Disease History Infectious Disease History: Reports: Chicken Pox - Past Surgical History HEENT Surgical History: Reports: Other (See Below) GI Surgical History: Reports: Hernia, Inguinal Female Surgical History: Reports: Tubal Ligation Musculoskeletal Surgical History: Reports: Carpal Tunnel, Other (See Below) Social & Family History - Family History Family Medical History: Noncontributory - Caffeine Use Caffeine Use: Reports: Coffee, Soda, Tea - Living Situation & Occupation Living situation: Reports: , with Spouse Occupation: Unemployed ED ROS GENERAL - Review of Systems Review Of Systems: See Below Constitutional: Reports: No Symptoms. Denies: Fever, Chills HEENT: Reports: No Symptoms Respiratory: Reports: Wheezing, Cough (Mild) Cardiovascular: Reports: No Symptoms Endocrine: Reports: No Symptoms GI/Abdominal: Reports: No Symptoms, Nausea, Vomiting. Denies: Constipation, Diarrhea Skin: Reports: No Symptoms Neurological: Reports: No Symptoms Psychiatric: Reports: No Symptoms Hematologic/Lymphatic: Reports: No Symptoms Immunologic: Reports: No Symptoms ED EXAM, GENERAL - Physical Exam Exam: See Below Exam Limited By: No Limitations General Appearance: Alert, No Apparent Distress Head: Atraumatic, Normocephalic Neck: Normal Inspection, Supple, Non-Tender, Full Range of Motion Respiratory/Chest: No Respiratory Distress, Lungs Clear, Normal Breath Sounds Cardiovascular: Normal Peripheral Pulses, Regular Rate, Rhythm, No Edema, Tachycardia GI/Abdominal: Normal Bowel Sounds, Soft, Other (Across the upper abdomen). No: Guarding, Rigid, Rebound, Tender Neurological: Alert, Oriented Psychiatric: Normal Affect, Normal Mood Skin Exam: Warm, Intact Lymphatic: No Adenopathy Course - Vital Signs Last Recorded V/S: Last Vital Signs Temp 37.1 C 02/05/19 20:10 Pulse 130 H 02/05/19 20:10 Resp 26 H 02/05/19 20:10 BP 146/119 H 02/05/19 20:10 Pulse Ox 98 02/05/19 20:14 - Orders/Labs/Meds Orders: Active Orders 24 hr Category Date Time Status RT Aerosol Therapy [RC] ASDIRECTED Care 02/05/19 20:10 Active Lactated Ringers [Ringers, Lactated] 2,000 ml Med 02/05/19 20:41 Active IV .BOLUS Medication Orders Lactated Ringer's (Ringers, Lactated) 2,000 mls @ 999 mls/hr IV .BOLUS ONE Stop: 02/05/19 22:41 Last Admin: 02/05/19 21:33 Dose: 999 mls/hr Labs: Laboratory Tests 02/05/19 Range/Units 21:10 HCG, Qual Negative (NEGATIVE) Meds: Medications Generic Name Dose Route Start Last Admin Trade Name Freq PRN Reason Stop Dose Admin Lactated Ringer's 2,000 mls @ 999 mls/hr 02/05/19 20:41 02/05/19 21:33 Ringers, Lactated IV 02/05/19 22:41 999 mls/hr .BOLUS ONE Administration Discontinued Medications Generic Name Dose Route Start Last Admin Trade Name Freq PRN Reason Stop Dose Admin Albuterol/Ipratropium 3 ml 02/05/19 20:09 02/05/19 20:14 Duoneb 3.0-0.5 Mg/3 Ml NEB 02/05/19 20:10 3 ml ONETIME STA Administration Ondansetron HCl 4 mg 02/05/19 20:41 02/05/19 21:34 Zofran IVPUSH 02/05/19 20:42 4 mg ONETIME ONE Administration Ondansetron HCl 4 mg 02/05/19 22:27 Zofran Odt PO 02/05/19 22:28 ONETIME ONE Pantoprazole Sodium 40 mg 02/05/19 21:27 02/05/19 21:37 Protonix Iv IVPUSH 02/05/19 21:28 40 mg ONETIME ONE Administration - Re-Assessments/Exams Free Text/Narrative Re-Assessment/Exam: 02/05/19 22:28 Patient is doing much better at this time and really wants to go home she sounds 2 L of IV fluids in the form of LR. Departure - Departure Time of Disposition: 22:28 Disposition: Home, Self-Care 01 Clinical Impression: Gastroenteritis - Discharge Information Prescriptions: Ondansetron [Zofran ODT] 4 mg PO Q6H PRN #6 tab.dis PRN Reason: Nausea/Vomiting Referrals: Suri Alex PA-C [Primary Care Provider] - Forms: ED Department Discharge Additional Instructions: Return to the emergency room with any questions problems worsening symptoms. Uses Zofran as needed to control her nausea. Clear liquid diet for the next 24 hours then slowly advance as tolerated. Return to the emergency room in 12-24 hours if not doing better certainly come in sooner if getting worse - My Orders Last 24 Hours: My Active Orders 02/05/19 20:41 Lactated Ringers [Ringers, Lactated] 2,000 ml IV .BOLUS - Assessment/Plan Last 24 Hours: My Active Orders 02/05/19 20:41 Lactated Ringers [Ringers, Lactated] 2,000 ml IV .BOLUS
[2019-02-05] MEDS ORDERED: Ondansetron 4 MG/2 ML SDV IVPUSH ONE (20:41)
[2019-02-05] MEDS ORDERED: Pantoprazole 40 MG in Sodium Chloride 0.9% 100 ML IV ONE (20:41)
[2019-02-05] MEDS ORDERED: Lactated Ringers 2,000 ML IV ONE (20:41)
[2019-02-05] MEDS ORDERED: Pantoprazole 40 MG Vial IVPUSH ONE (21:27)
[2019-02-05] MEDS ORDERED: Ondansetron 4 MG Tab.DIS PO ONE (22:27)
== END 2019-02-05 22:40 | disposition home or self-care (01) ==
LOC: JD.ED 19:52
DX: K52.9 Noninfective gastroenteritis and colitis, unspecified (principal); F41.9 Anxiety disorder, unspecified; J45.909 Unspecified asthma, uncomplicated; Z79.899 Other long term (current) drug therapy; Z88.0 Allergy status to penicillin
CPT/HCPCS: 36415; 84703; 94640; 96361; 96374; 96375; 99284; C9113; J2405; J7120; 99283; J7620-GY

== ENCOUNTER 2020-05-26 16:26 | Emergency (ER) | payer MEDICAID, OTHER ==
[2020-05-26] MEDS ORDERED: fentaNYL 100 MCG/2 ML SDV IVPUSH ONE ×3 (16:56→17:45)
[2020-05-26 17:04] VITALS: BP 113/80; PULSE 100
[2020-05-26] MEDS ORDERED: Midazolam 1 MG/ML 2 ML SDV IVPUSH ONE (17:45)
[2020-05-26] MEDS ORDERED: Clindamycin Phosphate 600 MG in Sodium Chloride 0.9% 100 ML IV ONE (17:47)
--- NOTE | 2020-05-26 18:07 | CR ---
Right ankle: 3 views of right ankle were obtained. Fractures within the distal fibula and medial malleolus are noted which show significant displacement with shifting of the tibia in a medial direction relation of the talus. Diffuse soft tissue swelling is noted. Impression: 1. Displaced fractures as noted above. Diagnostic code #5 This report was dictated in MDT
--- NOTE | 2020-05-26 18:07 | CR ---
Right tibia and fibula: AP and lateral views of the right tibia and fibula were obtained. Nondisplaced proximal fibular fracture is seen which is slightly comminuted. Mild medial joint space narrowing seen within the right knee. Distal fibular fracture is noted with displacement. Medial tibial malleolar fracture is noted with displacement. Impression: 1. Proximal nondisplaced fibular fracture. 2. Displaced distal fibular and medial malleolus fractures. 3. Mild medial joint space narrowing within the knee. Diagnostic code #3 This report was dictated in MDT
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
--- NOTE | 2020-05-26 18:54 | CR ---
Right ankle: 2 views of the right ankle were obtained. Comparison: Prior ankle study performed earlier on the same day. Medial malleolus fracture and lateral malleolar fracture shows reduction. Ankle mortise is close to symmetric. Mildly displaced posterior malleolus fracture is seen on this exam. Plaster splint or cast is in place. Impression: 1. Significantly reduced fractures as noted above. 2. Posterior malleolus fracture seen on current study. Diagnostic code #3 This report was dictated in MDT
[2020-05-26] MEDS ORDERED: Acetaminophen/HYDROcodone 325-5 MG Tab PO ONE (19:22)
== END 2020-05-26 19:56 | disposition home or self-care (01) ==
LOC: JD.ED 16:26
DX: S93.04XA Dislocation of right ankle joint, initial encounter (principal); S82.851A Displaced trimalleolar fracture of right lower leg, initial encounter for closed fracture; J45.909 Unspecified asthma, uncomplicated; F17.210 Nicotine dependence, cigarettes, uncomplicated; Z98.51 Tubal ligation status; Z88.0 Allergy status to penicillin; Z79.899 Other long term (current) drug therapy; V29.9XXA Motorcycle rider (driver) (passenger) injured in unspecified traffic accident, initial encounter
CPT/HCPCS: 27818; 73590; 73600; 73610; 96365; 96375; 96376; 99284; A9270; J2250; J3010; J3490; J7050

== ENCOUNTER → 2020-06-07 | Day surgery (SDC) | payer OTHER ==
[~2020-06-07] MED LIST: Acetaminophen/HYDROcodone 325-5 MG Tab PO PRN; Albuterol 0.083% 2.5 MG/3 ML Neb Soln NEB SCH; Bupivacaine 0.25% 10 ML SDV ONE; Clindamycin Phosphate in D5W 900 MG in Premix Bag 1 BAG IV SCH; Dexamethasone 4 MG/ML 5 ML MDV ONE; HYDROmorphone 0.5 MG/0.5 ML Syringe ONE; Ketamine 500 mg/10 ML MDV ONE; Ketorolac 15 MG/ML SDV IVPUSH ONE; Lactated Ringers 1,000 ML IV SCH; Lactated Ringers 1,000 ML ONE; Lidocaine 1% 4 ML ONE; Lidocaine 1%/Sod Bicarbonate in NS 8.4% 1 ML Syringe IDERM PRN; Midazolam 1 MG/ML 2 ML SDV IVPUSH PRN; Midazolam 1 MG/ML 2 ML SDV ONE; Ondansetron 4 MG/2 ML SDV IVPUSH PRN; Ondansetron 4 MG/2 ML SDV ONE; Propofol 200 MG/20 ML SDV ONE; Rocuronium 50 MG/5 ML Vial ONE; Scopolamine 1.5 MG Transdermal Patch TRDERM SCH; Sodium Chloride 0.9% 10 ML Syringe FLUSH PRN; ceFAZolin 1 GM Vial ONE; diphenhydrAMINE 50 MG/ML SDV ONE; fentaNYL 100 MCG/2 ML SDV IVPUSH PRN; fentaNYL 250 MCG/5 ML SDV ONE
--- NOTE | 2020-06-07 08:23 | PCM.PREANE ---
Preanesthetic Assessment - Procedure Proposed Procedure: ORIF Right Ankle Fracture - Anesthesia/Transfusion/Family Hx Anesthesia History: Prior Anesthesia Reaction Type of Anesthesia Reaction: Excessive Nausea/Vomiting, Other (see below) (Breathing difficulty waking up) Family History of Anesthesia Reaction: No - Review of Systems General: No Symptoms Pulmonary: No Symptoms (Smoker 1/2-1 pack per day for 20 years. Chronic Cough, productive at times, asthma. Last used her inhaler 2 weeks ago. ) Cardiovascular: Other (Hypertenisve today. Feeling nervous, but states her blood pressure is usually high. ) Gastrointestinal: Other (Occasional heartburn. Using tums as needed. Nothing for the last week or so and no symptoms today. ) Neurological: Difficulty Walking, Gait Disturbance (Ankle fracture, using crutches. ) Other: Reports: Anxiety (Significant anxiety. Ativan for home use as needed. ) - Physical Assessment NPO Status Date: 06/06/20 NPO Status Time: 21:00 Vital Signs: Last Vital Signs Temp 36.1 C 06/07/20 07:30 Pulse 106 H 06/07/20 07:30 Resp 16 06/07/20 07:30 BP 156/115 H 06/07/20 07:30 Pulse Ox 96 06/07/20 07:30 Height: 1.73 m Weight: 77.111 kg ASA Class: 3 Mental Status: Alert & Oriented x3 Airway Class: Mallampati = 2 Dentition: Reports: Normal Dentition (Chipped teeth. ), Caries Thyro-Mental Finger Breadths: 2 Mouth Opening Finger Breadths: 3 ROM/Head Extension: Full Lungs: Clear to Auscultation, Normal Respiratory Effort, Decreased Breath Sounds Cardiovascular: Regular Rhythm, Tachycardia - Lab Values: Laboratory Last Values MRSA (PCR) Negative 05/31/20 09:40 - Allergies Allergies/Adverse Reactions: Allergies Allergy/AdvReac Type Severity Reaction Status Date / Time Penicillins Allergy Hives Verified 06/04/20 12:46 - Anesthesia Plan Pre-Op Medication Ordered: Anxiolytic, Other (Scopalamine Patch ) - Acknowledgements Anesthesia Type Planned: General Anesthesia Pt an Appropriate Candidate for the Planned Anesthesia: Yes Alternatives and Risks of Anesthesia Discussed w Pt/Guardian: Yes Pt/Guardian Understands and Agrees with Anesthesia Plan: Yes Additional Comments: Marijuana use last time was 2 weeks ago. Methamphetamine use 5 weeks ago. PreAnesthesia Questionnaire HEENT History: Reports: Allergic Rhinitis Respiratory History: Reports: Asthma Psychiatric History: Reports: Anxiety - Infectious Disease History Infectious Disease History: Reports: Chicken Pox - Past Surgical History HEENT Surgical History: Reports: Other (See Below) GI Surgical History: Reports: Hernia, Inguinal Female Surgical History: Reports: Tubal Ligation Musculoskeletal Surgical History: Reports: Carpal Tunnel, Other (See Below) - SUBSTANCE USE Smoking Status *Q: Current Some Day Smoker Tobacco Use Within Last Twelve Months: Cigarettes Second Hand Smoke Exposure: No Days Per Week of Alcohol Use: 2 Number of Drinks Per Day: 3 Total Drinks Per Week: 6 Recreational Drug Use History: Yes Recreational Drug Type: Reports: Marijuana/Hashish, Methamphetamine - HOME MEDS Home Medications: Home Meds Albuterol Sulfate [Albuterol Sulfate Hfa] 1 puff .ROUTE ASDIRECTED PRN 06/04/20 [History] Cetirizine [ZyrTEC] 10 mg PO DAILY PRN 06/04/20 [History] Cyclobenzaprine [Flexeril] 10 mg PO BID PRN 06/04/20 [History] LORazepam [Ativan] 0.5 mg PO TID PRN 06/04/20 [History] Acetaminophen/HYDROcodone [[place] 325-5 MG] 1 tab PO ASDIRECTED PRN 06/07/20 [History] Aspirin 325 mg PO BID #84 tab 06/07/20 [Rx] Hydrocodone/Acetaminophen [[place] 5-325 Tablet] 1 - 2 tab PO Q6H PRN #40 06/07/20 [Rx] - CURRENT (IN HOUSE) MEDS Current Meds: Current Medications Albuterol (Proventil Neb Soln) 2.5 mg NEB ONETIME JEFRY Lactated Ringer's (Ringers, Lactated) 1,000 mls @ 125 mls/hr IV ASDIRECTED JEFRY Stop: 06/07/20 23:00 Last Admin: 06/07/20 07:50 Dose: 125 mls/hr Documented by: Clindamycin Phosphate 900 mg/ (Premix) 50 mls @ 100 mls/hr IV ONETIME JEFRY Stop: 06/07/20 11:00 Last Admin: 06/07/20 07:53 Dose: 100 mls/hr Documented by: Lidocaine/Sodium Bicarbonate (Buffered Lidocaine 1% In Ns 8.4%) 0.25 ml IDERM ONETIME PRN PRN Reason: Prior to IV Start Stop: 06/07/20 23:00 Scopolamine (Transderm-Scop) 1.5 mg TRDERM ONETIME JEFRY Last Admin: 06/07/20 08:12 Dose: 1.5 mg Documented by: Sodium Chloride (Saline Flush) 10 ml FLUSH ASDIRECTED PRN PRN Reason: Keep Vein Open Stop: 06/07/20 23:00 Discontinued Medications Bupivacaine HCl (Sensorcaine-Mpf 0.25%) Confirm Administered Dose 30 ml .ROUTE .STK-MED ONE Stop: 06/07/20 07:52 Cefazolin Sodium (Ancef) Confirm Administered Dose 2 gm .ROUTE .STK-MED ONE Stop: 06/07/20 07:10 Dexamethasone (Dexamethasone) Confirm Administered Dose 20 mg .ROUTE .STK-MED ONE Stop: 06/07/20 07:11 Fentanyl (Sublimaze) Confirm Administered Dose 250 mcg .ROUTE .STK-MED ONE Stop: 06/07/20 07:11 Lidocaine HCl (Xylocaine-Mpf 1%) Confirm Administered Dose 4 mls @ as directed .ROUTE .STK-MED ONE Stop: 06/07/20 07:10 Lactated Ringer's (Ringers, Lactated) Confirm Administered Dose 1,000 mls @ as directed .ROUTE .STK-MED ONE Stop: 06/07/20 07:10 Ketamine HCl (Ketalar) Confirm Administered Dose 500 mg .ROUTE .STK-MED ONE Stop: 06/07/20 07:17 Midazolam HCl (Versed 1 Mg/Ml) Confirm Administered Dose 2 mg .ROUTE .STK-MED ONE Stop: 06/07/20 07:11 Ondansetron HCl (Zofran) Confirm Administered Dose 4 mg .ROUTE .STK-MED ONE Stop: 06/07/20 07:10 Propofol (Diprivan 20 Ml) Confirm Administered Dose 400 mg .ROUTE .STK-MED ONE Stop: 06/07/20 07:10 Rocuronium [place] (Zem[place]) Confirm Administered Dose 50 mg .ROUTE .STK-MED ONE Stop: 06/07/20 07:10
--- NOTE | 2020-06-07 11:16 | PCM.POSTAN ---
POST ANESTHESIA ASSESSMENT - MENTAL STATUS Mental Status: Somnolent - VITAL SIGNS Vital Signs: Last Vital Signs Temp 36.1 C 06/07/20 07:30 Pulse 106 H 06/07/20 07:30 Resp 16 06/07/20 07:30 BP 156/115 H 06/07/20 07:30 Pulse Ox 96 06/07/20 07:30 1107 116/82 95 10 99F 99% - RESPIRATORY Respiratory Status: Respiratory Rate WNL, Airway Patent, O2 Saturation Stable, Supplemental Oxygen - CARDIOVASCULAR CV Status: Pulse Rate WNL, Blood Pressure Stable - GASTROINTESTINAL GI Status: No Symptoms - PAIN Pain Score: 0 - POST OP HYDRATION Hydration Status: Adequate & Stable
[2020-06-07] MEDS: HYDROmorphone 0.5 MG/0.5 ML Syringe IVPUSH PRN ×2 (11:54→12:33)
--- NOTE | 2020-06-07 13:18 | PCM48HPAN ---
Post Anesthesia Note - EVALUATION WITHIN 48HRS OF ANESTHETIC Vital Signs in Normal Range: Yes Patient Participated in Evaluation: Yes Respiratory Function Stable: Yes Airway Patent: Yes Cardiovascular Function Stable: Yes Hydration Status Stable: Yes Pain Control Satisfactory: Yes Nausea and Vomiting Control Satisfactory: Yes Mental Status Recovered: Yes Vital Signs: Last Vital Signs Temp 98.4 F 06/07/20 12:40 Pulse 106 H 06/07/20 12:40 Resp 12 06/07/20 12:40 BP 120/81 06/07/20 12:40 Pulse Ox 96 06/07/20 12:40 - COMMENTS/OBSERVATIONS Free Text/Narrative:: wants to go home- has some pain and feels groggy. But feels she is ready to go home. Denies nausea
[2020-06-07 14:23] VITALS: BP 134/84; PULSE 99
--- NOTE | 2020-06-14 11:51 | PCM.OPNOTE ---
- General Post-Op/Procedure Note Date of Surgery/Procedure: 06/07/20 Operative Procedure(s): open reduction internal fixation of right bimalleolar ankle fracture with syndesmosis fixation Pre Op Diagnosis: right trimalleolar ankle fracture with syndesmotic disruption Post-Op Diagnosis: Same Anesthesia Technique: General LMA, Local Primary Surgeon: Alexsander Julian Anesthesia Provider: Breanna Muñiz Marine Plumber: Judi Singleton EBL in mLs: 40 Complications: None Condition: Good
--- NOTE | 2020-06-14 12:26 | OR ---
DATE OF OPERATION: 06/07/2020 SURGEON: Alexsander Julian MD OPERATION PERFORMED: Open reduction and internal fixation of right bimalleolar ankle fracture with syndesmotic fixation. PREOPERATIVE DIAGNOSIS: Right trimalleolar ankle fracture with syndesmotic disruption. POSTOPERATIVE DIAGNOSIS: Right trimalleolar ankle fracture with syndesmotic disruption. ANESTHESIA: General LMA with local. ANESTHESIA PROVIDER: Xiomara Moody. GLASS SCULLION: Judi Singleton PA-C. ESTIMATED BLOOD LOSS: 40 mL. COMPLICATIONS: None. CONDITION: Stable. DESCRIPTION OF PROCEDURE: The patient was identified in the preoperative holding area. Proper site was marked and identified by surgeon. The patient was taken back to the operative theater, where after adequate anesthesia, the patient's right lower extremity had a nonsterile tourniquet applied and it was then sterilely prepped and draped in the usual sterile fashion. OR time-out was performed. The patient received 2 g of IV Ancef at this time. Right lower extremity was exsanguinated. Tourniquet was insufflated to 250 mmHg. Standard lateral incision over the fibular fracture was made. This was taken down to the fracture site. Fracture site was curetted and rongeured of all fracture hematoma and soft tissue. Point- to-point reduction clamps were then utilized and had anatomic reduction, adequate religion of length utilizing C-arm fluoroscopy to show anatomic alignment. At this time, we decided to do a lag technique, so a 3.5 lag screw was then placed from anterior to posterior across the fracture site and was found to have good purchase. Next, a Brittnee distal fibular locking plate was placed, 6-hole, and was found to have adequate coverage of the fracture. Four screws were placed distally in the distal fibula and then proximally another 3 cortical screws were fixed. At this time, attention was turned to the medial malleolar piece. Standard incision was made over the medial malleolus. The saphenous vein and nerve were identified and retracted anteriorly. All periosteum as well as hematoma was then taken out of the fracture site. A point- to-point reduction clamp was used to reduce the medial malleolar fracture. C- arm fluoroscopy showed it to be anatomically reduced with symmetric ankle mortise. Two K-wires were then placed for two 4.0 cannulated Brittnee screws. Drill was then utilized and two 4.0 cannulated Brittnee screws were placed and found to have adequate fixation and reduction of the medial malleolar piece. At this time, a [id number] reduction clamp was placed across the syndesmosis and a tricortical 3.5 cortical screw was then placed across the syndesmosis for syndesmotic fixation and repair. C-arm fluoroscopy was used for a stress view and was found to have no widening of the ankle mortise. Adequate saline was irrigated through both wounds. 2-0 Vicryl was used subcutaneously, and fabian were used for closure of the skin. The patient was placed in a sterile soft dressing and a posterior slab splint and sent to the PACU in stable condition. ZARINA /[id number]
== END | disposition home or self-care (01) ==
LOC: JD.SDS 07:38
PROVIDERS: ATTEND Orthopaedic Surgery
DX: S82.851A Displaced trimalleolar fracture of right lower leg, initial encounter for closed fracture (principal); S93.431A Sprain of tibiofibular ligament of right ankle, initial encounter; Z01.812 Encounter for preprocedural laboratory examination; Z20.828 Contact with and (suspected) exposure to other viral communicable diseases; F41.9 Anxiety disorder, unspecified; J45.909 Unspecified asthma, uncomplicated; F17.210 Nicotine dependence, cigarettes, uncomplicated; K21.9 Gastro-esophageal reflux disease without esophagitis; Z88.0 Allergy status to penicillin; Z79.899 Other long term (current) drug therapy; X58.XXXA Exposure to other specified factors, initial encounter
CPT/HCPCS: 27814; 27829; 76000; 87635; 87641; 94640; A9270; C1713; C1769; C1776; J1100; J1170; J1200; J2001; J2250; J2405; J2704; J3010; J3490; J7120; 01480; J0690; U0002

== ENCOUNTER 2021-11-21 08:52 | Emergency (ER) | payer OTHER ==
[2021-11-21 11:16] VITALS: BP 134/98; PULSE 98
== END 2021-11-21 11:15 | disposition home or self-care (01) ==
LOC: JD.ED 08:52
DX: R07.89 Other chest pain (principal); K21.9 Gastro-esophageal reflux disease without esophagitis; Z88.0 Allergy status to penicillin; Z79.899 Other long term (current) drug therapy; Z72.0 Tobacco use
CPT/HCPCS: 71045; 71045-26; 99283; 99284-25

== ENCOUNTER 2022-08-10 12:54 | Inpatient (IN) | payer OTHER ==
[2022-08-10] MEDS ORDERED: Sodium Chloride 0.9% 10 ML Syringe FLUSH PRN ×2 (13:37→14:41)
[2022-08-10] MEDS ORDERED: Ondansetron 4 MG/2 ML SDV IVPUSH ONE (13:39)
[2022-08-10] MEDS ORDERED: Sodium Chloride 0.9% 1,000 ML IV STA ×2 (13:39→15:50)
[2022-08-10] MEDS ORDERED: Albuterol/Ipratropium 3.0-0.5 MG/3 ML Neb Soln NEB ONE (13:40)
[2022-08-10] MEDS ORDERED: methylPREDNISolone Sodium Succinate 125 MG/2 ML SDV IVPUSH ONE (13:40)
[2022-08-10 14:22] LABS: CORONAVIRUS COVID-19 NAA NEGATIVE (NEGATIVE)
[2022-08-10] MEDS ORDERED: cefTRIAXone 2 GM in Sodium Chloride 0.9% 100 ML IV ONE (14:22)
[2022-08-10] MEDS ORDERED: Iopamidol 755 Mg/ML 100 ML Bottle IVPUSH ONE (14:41)
[2022-08-10] MEDS ORDERED: Sodium Chloride 0.9% 100 ML IV SCH (14:45)
[2022-08-10] MEDS ORDERED: Cefepime 2 GM in Sodium Chloride 0.9% 50 ML IV ONE (17:17)
[2022-08-10] MEDS ORDERED: Vancomycin 2 GM in Sodium Chloride 0.9% 500 ML IV ONE ×2 (18:00→22:00)
[2022-08-10] MEDS ORDERED: Ondansetron 4 MG/2 ML SDV IV PRN (18:48)
[2022-08-10] MEDS ORDERED: Acetaminophen 325 MG Tab PO PRN (18:48)
[2022-08-10] MEDS ORDERED: Albuterol 0.083% 2.5 MG/3 ML Neb Soln NEB PRN (18:54)
[2022-08-10] MEDS ORDERED: Cetirizine 10 MG Tab PO PRN (18:54)
[2022-08-10] MEDS ORDERED: Sodium Chloride 0.9% 1,000 ML IV SCH (19:00)
[2022-08-10] MEDS ORDERED: Sodium Chloride 0.9% 500 ML ONE (22:22)
[2022-08-10] MEDS: Albuterol/Ipratropium 3.0-0.5 MG/3 ML Neb Soln NEB SCH (22:23)
[2022-08-11] MEDS: Albuterol/Ipratropium 3.0-0.5 MG/3 ML Neb Soln NEB SCH ×6 (01:41→21:46)
[2022-08-11] MEDS: Cefepime 2 GM in Sodium Chloride 0.9% 50 ML IV SCH ×3 (03:25→17:37)
[2022-08-11] MEDS: predniSONE 20 MG Tab PO SCH (06:14)
[2022-08-11] MEDS: Pantoprazole 40 MG Tab.CR PO SCH (06:14)
[2022-08-11] MEDS: Enoxaparin 40 MG/0.4 ML Syringe SUBCUT SCH (08:31)
[2022-08-11] MEDS: VANCOmycin 1.25 GM/250 ML 1.25 GM in Premix Bag 1 BAG IV SCH ×2 (08:32→20:44)
[2022-08-11] MEDS ORDERED: Alum Hydrox/Mag Hydrox/Simeth 30 ML, Lidocaine 2% 15 ML PO ONE ×2 (11:30)
[2022-08-12] MEDS: Cefepime 2 GM in Sodium Chloride 0.9% 50 ML IV SCH (02:30)
[2022-08-12] MEDS: Albuterol/Ipratropium 3.0-0.5 MG/3 ML Neb Soln NEB SCH ×3 (02:47→10:02)
[2022-08-12] MEDS: predniSONE 20 MG Tab PO SCH (06:32)
[2022-08-12] MEDS: Pantoprazole 40 MG Tab.CR PO SCH (06:33)
[2022-08-12] MEDS: Enoxaparin 40 MG/0.4 ML Syringe SUBCUT SCH (08:01)
[2022-08-12] MEDS: VANCOmycin 1.25 GM/250 ML 1.25 GM in Premix Bag 1 BAG IV SCH (08:02)
[2022-08-12 08:20] VITALS: BP 151/110; PULSE 110
== END 2022-08-12 10:33 | disposition home or self-care (01) | DRG 871 ==
LOC: JD.ED 12:54 → JD.MS 16:48
PROVIDERS: ADMIT Internal Medicine; ATTEND Internal Medicine
DX: Z41.9 Encounter for procedure for purposes other than remedying health state, unspecified (principal); A41.9 Sepsis, unspecified organism; J18.9 Pneumonia, unspecified organism; R09.02 Hypoxemia; J96.01 Acute respiratory failure with hypoxia; J45.41 Moderate persistent asthma with (acute) exacerbation; Z20.822 Contact with and (suspected) exposure to COVID-19; F41.9 Anxiety disorder, unspecified; E11.9 Type 2 diabetes mellitus without complications; R65.20 Severe sepsis without septic shock; F17.210 Nicotine dependence, cigarettes, uncomplicated; Z79.51 Long term (current) use of inhaled steroids; K21.9 Gastro-esophageal reflux disease without esophagitis; K44.9 Diaphragmatic hernia without obstruction or gangrene; I27.20 Pulmonary hypertension, unspecified; G89.29 Other chronic pain; Z88.0 Allergy status to penicillin; Z79.899 Other long term (current) drug therapy; Z86.19 Personal history of other infectious and parasitic diseases; Z98.51 Tubal ligation status; Z98.890 Other specified postprocedural states; Z93.3 Colostomy status
CPT/HCPCS: 0241U; 36415; 71045; 71275; 80053; 80202; 83605; 83880; 84484; 85025; 85027; 85379; 86140; 87040; 90471; 93005; 94640; 94761; 96367; 96361; 96365; 96366; 96375; 99285-25; A9270-GY; G0008; J0692; J0696; J1650; J2405; J2930; J3370; J3490; J7030; J7040; J7512; J7620-GY; Q9967

== ENCOUNTER 2023-05-13 14:55 | Emergency (ER) | payer OTHER ==
[2023-05-13] MEDS ORDERED: Sodium Chloride 0.9% 10 ML Syringe FLUSH PRN (16:11)
[2023-05-13] MEDS ORDERED: Sodium Chloride 0.9% 1,000 ML IV ONE (16:11)
[2023-05-13] MEDS ORDERED: Alum Hydrox/Mag Hydrox/Simeth 30 ML, Lidocaine 2% 10 ML PO ONE ×2 (16:12)
[2023-05-13 16:15] LABS: BASOPHILS ABSOLUTE AUTO 0.1 K/mm3 (0.0-0.2); BASOPHILS PERCENT AUTO 0.4 % (0.0-1.0); EOSINOPHILS PERCENT AUTO 0.1 % (0.0-6.0); HEMATOCRIT 35.4 % (37.0-47.0); HEMOGLOBIN 10.3 gm/dl (12.0-16.0); IMMATURE GRAN ABSOLUTE AUTO 0.07 K/mm3 (0.00-0.05); IMMATURE GRAN PERCENT AUTO 0.5 % (0.0-0.4); LYMPHOCYTES ABSOLUTE AUTO 0.6 K/mm3 (1.0-4.8); LYMPHOCYTES PERCENT AUTO 4.5 % (24.0-44.0); MEAN CORPUSCULAR HEMOGLOBIN 22.6 pg (28.0-32.0); MEAN CORPUSCULAR HGB CONC 29.1 g/dl (32.0-36.0); MEAN CORPUSCULAR VOLUME 77.6 fl (83.0-99.0); MEAN PLATELET VOLUME 9.2 fl (9.4-12.3); MONOCYTES ABSOLUTE AUTO 1.1 K/mm3 (0.0-0.8); MONOCYTES PERCENT AUTO 7.8 % (0.0-8.0); NEUTROPHILS ABSOLUTE AUTO 12.3 K/mm3 (1.8-7.7); NEUTROPHILS PERCENT AUTO 86.7 % (41.0-71.0); PLATELET COUNT,PLT 348 K/mm3 (150-400); RED BLOOD CELL COUNT 4.56 M/mm3 (4.10-5.30); WHITE BLOOD CELL COUNT,WBC 14.16 K/mm3 (3.9-11.3)
[2023-05-13] MEDS ORDERED: Alum Hydrox/Mag Hydrox/Simeth 30 ML, Lidocaine 2% 15 ML PO ONE ×2 (16:22)
[2023-05-13] MEDS ORDERED: Pantoprazole 40 MG Vial IVPUSH ONE (16:23)
[2023-05-13] MEDS ORDERED: Prochlorperazine 10 MG/2 ML SDV IVPUSH ONE (16:23)
[2023-05-13 16:34] LABS: A/G RATIO 0.5 (1-2); ALBUMIN 2.7 g/dl (3.4-5.0); ANION GAP 14.7 (5-15); BILIRUBIN TOTAL 0.8 mg/dL (0.2-1.0); BUN/CREATININE RATIO 9.2 (14-18); CALCIUM 9.9 mg/dL (8.5-10.1); CREATININE 1.2 mg/dL (0.55-1.02); EST CRCL DRUG DOSING (CG) 62.86 mL/min; POTASSIUM,K 3.7 mEq/L (3.5-5.1); PROTEIN TOTAL,TP 8.4 g/dl (6.4-8.2)
[2023-05-13 18:09] LABS: FERRITIN 66 ng/ml (8-252); IRON,FE 33 ug/dL (50-170); PERCENT FE SATURATION 9 % (20-55); TRANSFERRIN 289 mg/dL (202-364)
[2023-05-13 18:10] LABS: TOTAL IRON BINDING CAPACITY 361 ug/dL (100-400)
[2023-05-13] MEDS: fentaNYL 100 MCG/2 ML SDV IVPUSH ONE ×2 (18:40→18:41)
[2023-05-13] MEDS ORDERED: Morphine 2 MG/ML SYRINGE IVPUSH ONE (18:43)
[2023-05-13] MEDS ORDERED: Metoprolol Tartrate 5 MG/5 ML SDV IVPUSH ONE (19:00)
[2023-05-13] MEDS ORDERED: Acetaminophen 325 MG Tab PO ONE (20:13)
[2023-05-13 20:59] VITALS: BP 141/71; PULSE 79
== END 2023-05-13 20:55 | disposition home or self-care (01) ==
LOC: JD.ED 14:55
DX: J06.9 Acute upper respiratory infection, unspecified (principal); B97.89 Other viral agents as the cause of diseases classified elsewhere; K21.9 Gastro-esophageal reflux disease without esophagitis; J45.909 Unspecified asthma, uncomplicated; Z91.011 Allergy to milk products; Z91.048 Other nonmedicinal substance allergy status; Z79.899 Other long term (current) drug therapy; Z72.0 Tobacco use
CPT/HCPCS: 36415; 71045; 80053; 82728; 83540; 83735; 84466; 85025; 93005; 96361; 96374; 96375; 99284; A9270; C9113; J0780; J2270; J3490; J7030; 93010; J3010

== ENCOUNTER 2023-12-05 06:27 | Emergency (ER) | payer OTHER ==
[2023-12-05 07:07] LABS: BASOPHILS PERCENT AUTO 0.3 % (0.0-1.0); EOSINOPHILS ABSOLUTE AUTO 0.2 K/mm3 (0.0-0.4); EOSINOPHILS PERCENT AUTO 2.5 % (0.0-6.0); HEMATOCRIT 41.6 % (37.0-47.0); HEMOGLOBIN 14.2 gm/dl (12.0-16.0); IMMATURE GRAN ABSOLUTE AUTO 0.02 K/mm3 (0.00-0.05); IMMATURE GRAN PERCENT AUTO 0.3 % (0.0-0.4); LYMPHOCYTES ABSOLUTE AUTO 0.9 K/mm3 (1.0-4.8); LYMPHOCYTES PERCENT AUTO 14.1 % (24.0-44.0); MEAN CORPUSCULAR HEMOGLOBIN 32.2 pg (28.0-32.0); MEAN CORPUSCULAR HGB CONC 34.1 g/dl (32.0-36.0); MEAN CORPUSCULAR VOLUME 94.3 fl (83.0-99.0); MEAN PLATELET VOLUME 9.6 fl (9.4-12.3); MONOCYTES ABSOLUTE AUTO 0.5 K/mm3 (0.0-0.8); MONOCYTES PERCENT AUTO 7.9 % (0.0-8.0); NEUTROPHILS PERCENT AUTO 74.9 % (41.0-71.0); PLATELET COUNT,PLT 371 K/mm3 (150-400); RED BLOOD CELL COUNT 4.41 M/mm3 (4.10-5.30); WHITE BLOOD CELL COUNT,WBC 6.67 K/mm3 (3.9-11.3)
[2023-12-05 07:25] LABS: A/G RATIO 0.8 (1-2); ALANINE AMINOTRANSFERASE,ALT 139 U/L (14-59); ALBUMIN 3.8 g/dl (3.4-5.0); ALKALINE PHOSPHATASE 214 U/L (46-116); ANION GAP 13.8 (5-15); ASPARTATE AMNIOTRANSFERASE,AST 47 U/L (15-37); BILIRUBIN TOTAL 0.7 mg/dL (0.2-1.0); BLOOD UREA NITROGEN,BUN 23 mg/dL (7-18); BUN/CREATININE RATIO 28.8 (14-18); CALCIUM 10.3 mg/dL (8.5-10.1); CARBON DIOXIDE,CO2 26 mEq/L (21-32); CHLORIDE,CL 93 mEq/L (98-107); CREATININE 0.8 mg/dL (0.55-1.02); ESTIMATED GFR 95 mL/min (>60); GLUCOSE RANDOM 102 mg/dL (70-99); LIPASE 39 U/L (16-77); POTASSIUM,K 4.8 mEq/L (3.5-5.1); PROTEIN TOTAL,TP 8.8 g/dl (6.4-8.2); SODIUM,NA 128 mEq/L (136-145)
[2023-12-05] MEDS: Sodium Chloride 0.9% 1,000 ML IV ONE (08:39)
[2023-12-05] MEDS: Sodium Chloride 0.9% 10 ML Syringe FLUSH PRN ×2 (08:40)
[2023-12-05] MEDS: Iopamidol 612 MG/ML 100 ML Bottle IVPUSH ONE (08:50)
[2023-12-05 11:36] VITALS: BP 104/85; PULSE 112
== END 2023-12-05 12:58 | disposition home or self-care (01) ==
LOC: JD.ED 06:27
DX: K83.1 Obstruction of bile duct (principal); K21.9 Gastro-esophageal reflux disease without esophagitis; E11.9 Type 2 diabetes mellitus without complications; J45.909 Unspecified asthma, uncomplicated; Z91.011 Allergy to milk products; Z88.0 Allergy status to penicillin; Z91.018 Allergy to other foods; Z88.6 Allergy status to analgesic agent; Z79.51 Long term (current) use of inhaled steroids; Z79.899 Other long term (current) drug therapy
CPT/HCPCS: 36415; 74177; 80048; 80076; 83690; 85025; 99284; J3490; J7030; Q9967

== ENCOUNTER 2024-02-16 17:04 | Emergency (ER) | payer OTHER ==
[2024-02-16] MEDS: Sodium Chloride 0.9% 1,000 ML IV ONE (17:25)
[2024-02-16] MEDS: Sodium Chloride 0.9% 10 ML Syringe FLUSH PRN (17:25)
[2024-02-16 17:30] LABS: HEMATOCRIT 45.6 % (37.0-47.0); HEMOGLOBIN 15.5 gm/dl (12.0-16.0); MEAN CORPUSCULAR HEMOGLOBIN 31.1 pg (28.0-32.0); MEAN CORPUSCULAR VOLUME 91.6 fl (83.0-99.0); MEAN PLATELET VOLUME 9.7 fl (9.4-12.3); PLATELET COUNT,PLT 275 K/mm3 (150-400); RED BLOOD CELL COUNT 4.98 M/mm3 (4.10-5.30); WHITE BLOOD CELL COUNT,WBC 5.02 K/mm3 (3.9-11.3)
[2024-02-16 17:48] LABS: INR 0.93
[2024-02-16 17:52] LABS: A/G RATIO 0.8 (1-2); ALANINE AMINOTRANSFERASE,ALT 38 U/L (14-59); ALBUMIN 3.5 g/dl (3.4-5.0); ALKALINE PHOSPHATASE 146 U/L (46-116); ANION GAP 19.5 (5-15); ASPARTATE AMNIOTRANSFERASE,AST 41 U/L (15-37); BILIRUBIN TOTAL 0.2 mg/dL (0.2-1.0); BLOOD UREA NITROGEN,BUN 4 mg/dL (7-18); BUN/CREATININE RATIO 6.7 (14-18); C-REACTIVE PROTEIN 0.12 mg/dL (<0.30); CALCIUM 8.8 mg/dL (8.5-10.1); CARBON DIOXIDE,CO2 24 mEq/L (21-32); CHLORIDE,CL 99 mEq/L (98-107); CREATININE 0.6 mg/dL (0.55-1.02); EST CRCL DRUG DOSING (CG) 133.87 mL/min; ESTIMATED GFR 116 mL/min (>60); ETHANOL BLOOD MEDICAL 0.24 gm% (0.00); GLUCOSE RANDOM 92 mg/dL (70-99); LIPASE 20 U/L (16-77); POTASSIUM,K 3.5 mEq/L (3.5-5.1); PROTEIN TOTAL,TP 8.1 g/dl (6.4-8.2); SODIUM,NA 139 mEq/L (136-145)
[2024-02-16 17:56] LABS: TROPONIN I HIGH SENSITIVITY < 4 pg/mL (<=51)
[2024-02-16 17:57] LABS: LACTIC ACID 2.8 mmol/L (0.4-2.0)
[2024-02-16 18:04] LABS: BAND PERCENT MAN 0 % (0-10); BASOPHILS PERCENT MAN 0 (0.1-1.2); EOSINOPHILS PERCENT MAN 4 % (0.7-5.8); LYMPHOCYTES % ATYPICAL MANUAL 2 %; LYMPHOCYTES PERCENT MAN 35 % (20-40); MONOCYTES PERCENT MAN 2 % (2-10); PLATELET COUNT ESTIMATE ADEQUATE
[2024-02-16 18:05] LABS: APPEARANCE,URINE CLEAR (Clear); BILIRUBIN,URINE NEGATIVE (Negative); COLOR,URINE YELLOW (Yellow); GLUCOSE,URINE NEGATIVE (Negative); KETONES,URINE NEGATIVE (Negative); LEUKOCYTE ESTERASE,URINE 2+ (Negative); NITRITE,URINE NEGATIVE (Negative); OCCULT BLOOD,URINE TRACE-INTACT (Negative); PH,URINE 6.5 (5.0-8.0); PROTEIN,URINE NEGATIVE (Negative); UROBILINOGEN,URINE 0.2 (0.2-1.0)
[2024-02-16 18:12] LABS: BUPRENORPHINE SCREEN,URINE NEGATIVE (CUTOFF=10); METHAMPHETAMINES SCREEN, URINE PRESUMPTIVE POSITIVE (CUTOFF=500); THC SCREEN,URINE 20 NG/ML PRESUMPTIVE POSITIVE (CUTOFF=50)
[2024-02-16 18:13] LABS: AMPHETAMINES SCREEN, URINE PRESUMPTIVE POSITIVE (CUTOFF=500)
[2024-02-16 18:14] LABS: BARBITURATE SCREEN,URINE NEGATIVE (CUTOFF=200); BENZODIAZEPINES SCREEN,URINE NEGATIVE (CUTOFF=150)
[2024-02-16 18:15] LABS: METHADONE SCREEN, URINE NEGATIVE (CUTOFF=200); OXYCODONE SCREEN,URINE NEGATIVE (CUT0FF=100)
[2024-02-16 18:29] LABS: BACTERIA,URINE MANY /hpf (FEW); SQUAMOUS EPITHELIAL CELLS,UR 0-5 /hpf (0-5)
[2024-02-16 18:30] LABS: CALCIUM OXALATE CRYSTALS,URINE FEW; MUCUS,URINE FEW /hpf (FEW)
[2024-02-16] MEDS: cefTRIAXone 2 GM in Sodium Chloride 0.9% 100 ML IV ONE (18:56)
[2024-02-16 20:27] VITALS: BP 117/92; PULSE 105
== END 2024-02-16 19:22 | disposition home or self-care (01) ==
LOC: JD.ED 17:04
DX: N30.00 Acute cystitis without hematuria (principal); F10.920 Alcohol use, unspecified with intoxication, uncomplicated; F15.10 Other stimulant abuse, uncomplicated; J45.909 Unspecified asthma, uncomplicated; E11.9 Type 2 diabetes mellitus without complications; K21.9 Gastro-esophageal reflux disease without esophagitis; Z79.899 Other long term (current) drug therapy; Z88.0 Allergy status to penicillin; Z91.011 Allergy to milk products; Z91.018 Allergy to other foods
CPT/HCPCS: 36415; 74176; 80053; 80306; 80307; 81001; 83605; 83690; 84484; 85007; 85027; 85610; 86140; 87040; 93005; 96361; 96365; 99285; J0696; J3490; J7030; 93010; 99283

== ENCOUNTER 2024-03-17 01:06 | Emergency (ER) | payer OTHER ==
[2024-03-17 03:23] VITALS: BP 134/86; PULSE 85
== END 2024-03-17 03:20 | disposition home or self-care (01) ==
LOC: JD.ED 01:06
DX: Z96.89 Presence of other specified functional implants (principal); J45.909 Unspecified asthma, uncomplicated; K21.9 Gastro-esophageal reflux disease without esophagitis; E11.9 Type 2 diabetes mellitus without complications; F17.210 Nicotine dependence, cigarettes, uncomplicated; Z91.011 Allergy to milk products; Z91.018 Allergy to other foods; Z88.0 Allergy status to penicillin; Z88.6 Allergy status to analgesic agent; Z79.899 Other long term (current) drug therapy
CPT/HCPCS: 74018; 74018-26; 99282; 99283

== ENCOUNTER 2024-05-25 15:41 | Emergency (ER) | payer OTHER ==
[2024-05-25] MEDS ORDERED: Sodium Chloride 0.9% 10 ML Syringe FLUSH PRN ×2 (16:02)
[2024-05-25] MEDS: Sodium Chloride 0.9% 500 ML IV SCH (16:10)
[2024-05-25] MEDS: Ondansetron 4 MG/2 ML SDV IVPUSH ONE (16:11)
[2024-05-25] MEDS: HYDROmorphone 1 MG/ML Syringe IVPUSH ONE (16:11)
[2024-05-25 16:12] LABS: BASOPHILS PERCENT AUTO 0.3 % (0.0-1.0); EOSINOPHILS PERCENT AUTO 0.3 % (0.0-6.0); HEMATOCRIT 51.2 % (37.0-47.0); HEMOGLOBIN 17.3 gm/dl (12.0-16.0); IMMATURE GRAN ABSOLUTE AUTO 0.06 K/mm3 (0.00-0.05); IMMATURE GRAN PERCENT AUTO 0.4 % (0.0-0.4); LYMPHOCYTES ABSOLUTE AUTO 0.5 K/mm3 (1.0-4.8); LYMPHOCYTES PERCENT AUTO 3.3 % (24.0-44.0); MEAN CORPUSCULAR HEMOGLOBIN 34.4 pg (28.0-32.0); MEAN CORPUSCULAR HGB CONC 33.8 g/dl (32.0-36.0); MEAN CORPUSCULAR VOLUME 101.8 fl (83.0-99.0); MEAN PLATELET VOLUME 10.8 fl (9.4-12.3); MONOCYTES ABSOLUTE AUTO 0.6 K/mm3 (0.0-0.8); MONOCYTES PERCENT AUTO 4.1 % (0.0-8.0); NEUTROPHILS ABSOLUTE AUTO 13.2 K/mm3 (1.8-7.7); NEUTROPHILS PERCENT AUTO 91.6 % (41.0-71.0); PLATELET COUNT,PLT 286 K/mm3 (150-400); RED BLOOD CELL COUNT 5.03 M/mm3 (4.10-5.30); WHITE BLOOD CELL COUNT,WBC 14.44 K/mm3 (3.9-11.3)
[2024-05-25 16:36] LABS: A/G RATIO 0.7 (1-2); ALBUMIN 3.6 g/dl (3.4-5.0); ANION GAP 13.7 (5-15); BILIRUBIN TOTAL 5.9 mg/dL (0.2-1.0); BUN/CREATININE RATIO 14.3 (14-18); CALCIUM 10.2 mg/dL (8.5-10.1); EST CRCL DRUG DOSING (CG) 106.69 mL/min
[2024-05-25 16:37] LABS: CREATININE 0.7 mg/dL (0.55-1.02); POTASSIUM,K 3.7 mEq/L (3.5-5.1); PROTEIN TOTAL,TP 8.9 g/dl (6.4-8.2)
[2024-05-25 17:06] LABS: INR 0.97; PROTHROMBIN TIME 10.3 SECONDS (9.7-12.0)
[2024-05-25 17:21] LABS: SLIDE REVIEW ABNORMAL SMEAR
[2024-05-25 19:00] VITALS: BP 109/84; PULSE 111
== END 2024-05-25 18:59 | disposition home or self-care (01) ==
LOC: JD.ED 15:41
DX: K82.9 Disease of gallbladder, unspecified (principal); E11.9 Type 2 diabetes mellitus without complications; Z79.899 Other long term (current) drug therapy; Z91.011 Allergy to milk products; Z91.018 Allergy to other foods; Z88.0 Allergy status to penicillin; Z88.5 Allergy status to narcotic agent
CPT/HCPCS: 36415; 80053; 82150; 83690; 85025; 85610; 96361; 96374; 96375; 99284; J1170; J2405; J7030

== ENCOUNTER 2024-10-08 11:18 | Emergency (ER) | payer OTHER ==
[2024-10-08 11:52] VITALS: BP 172/120; PULSE 102
[2024-10-08] MEDS ORDERED: Sodium Chloride 0.9% 10 ML Syringe FLUSH PRN (11:54)
[2024-10-08 12:15] LABS: BASOPHILS ABSOLUTE AUTO 0.1 K/mm3 (0.0-0.2); BASOPHILS PERCENT AUTO 1.1 % (0.0-1.0); EOSINOPHILS ABSOLUTE AUTO 0.2 K/mm3 (0.0-0.4); EOSINOPHILS PERCENT AUTO 3.4 % (0.0-6.0); HEMATOCRIT 43.9 % (37.0-47.0); HEMOGLOBIN 14.7 gm/dl (12.0-16.0); IMMATURE GRAN ABSOLUTE AUTO 0.02 K/mm3 (0.00-0.05); IMMATURE GRAN PERCENT AUTO 0.4 % (0.0-0.4); LYMPHOCYTES ABSOLUTE AUTO 0.6 K/mm3 (1.0-4.8); LYMPHOCYTES PERCENT AUTO 11.4 % (24.0-44.0); MEAN CORPUSCULAR HEMOGLOBIN 31.6 pg (28.0-32.0); MEAN CORPUSCULAR HGB CONC 33.5 g/dl (32.0-36.0); MEAN CORPUSCULAR VOLUME 94.4 fl (83.0-99.0); MEAN PLATELET VOLUME 9.4 fl (9.4-12.3); MONOCYTES ABSOLUTE AUTO 0.4 K/mm3 (0.0-0.8); MONOCYTES PERCENT AUTO 8.2 % (0.0-8.0); NEUTROPHILS PERCENT AUTO 75.5 % (41.0-71.0); PLATELET COUNT,PLT 216 K/mm3 (150-400); RED BLOOD CELL COUNT 4.65 M/mm3 (4.10-5.30); WHITE BLOOD CELL COUNT,WBC 5.35 K/mm3 (3.9-11.3)
[2024-10-08] MEDS: Sodium Chloride 0.9% 1,000 ML IV STA (12:22)
[2024-10-08] MEDS: Ondansetron 4 MG/2 ML SDV IVPUSH ONE (12:22)
[2024-10-08] MEDS: methylPREDNISolone Sodium Succinate 40 MG/1 ML SDV IVPUSH ONE (12:22)
[2024-10-08] MEDS: Albuterol/Ipratropium 3.0-0.5 MG/3 ML Neb Soln NEB ONE (12:36)
[2024-10-08 12:39] LABS: LACTIC ACID 1.4 mmol/L (0.4-2.0)
[2024-10-08 12:45] LABS: A/G RATIO 0.8 (1-2); ALBUMIN 3.5 g/dl (3.4-5.0); ANION GAP 13.7 (5-15); BILIRUBIN TOTAL 0.5 mg/dL (0.2-1.0); C-REACTIVE PROTEIN 0.13 mg/dL (<0.30); CALCIUM 9.2 mg/dL (8.5-10.1); CREATININE 0.8 mg/dL (0.55-1.02); EST CRCL DRUG DOSING (CG) 93.35 mL/min; POTASSIUM,K 3.7 mEq/L (3.5-5.1); PROTEIN TOTAL,TP 7.9 g/dl (6.4-8.2)
[2024-10-08 12:56] LABS: CORONAVIRUS COVID-19 NAA NEGATIVE (NEGATIVE); INFLUENZA A NAA NEGATIVE (NEGATIVE); RESPIRATORY SYNCYTIAL VIR NAA POSITIVE (NEGATIVE)
== END 2024-10-08 13:45 | disposition home or self-care (01) ==
LOC: JD.ED 11:18
DX: B33.8 Other specified viral diseases (principal); B97.4 Respiratory syncytial virus as the cause of diseases classified elsewhere; K21.9 Gastro-esophageal reflux disease without esophagitis; E11.40 Type 2 diabetes mellitus with diabetic neuropathy, unspecified; F17.210 Nicotine dependence, cigarettes, uncomplicated; Z79.899 Other long term (current) drug therapy; Z88.0 Allergy status to penicillin; Z88.5 Allergy status to narcotic agent; Z91.018 Allergy to other foods; Z91.011 Allergy to milk products
CPT/HCPCS: 0241U; 36415; 71046; 80053; 83605; 85025; 86140; 94640; 96361; 96374; 96375; 99285; J2405; J2919; J7030; 99284; J7620-GY

== ENCOUNTER 2024-10-24 12:02 | Emergency (ER) | payer OTHER ==
[2024-10-24 12:34] VITALS: BP 155/117; PULSE 116
[2024-10-24 13:14] LABS: BASOPHILS ABSOLUTE AUTO 0.1 K/mm3 (0.0-0.2); BASOPHILS PERCENT AUTO 0.9 % (0.0-1.0); EOSINOPHILS ABSOLUTE AUTO 0.2 K/mm3 (0.0-0.4); EOSINOPHILS PERCENT AUTO 4.3 % (0.0-6.0); HEMOGLOBIN 14.8 gm/dl (12.0-16.0); IMMATURE GRAN ABSOLUTE AUTO 0.01 K/mm3 (0.00-0.05); IMMATURE GRAN PERCENT AUTO 0.2 % (0.0-0.4); LYMPHOCYTES ABSOLUTE AUTO 1.6 K/mm3 (1.0-4.8); LYMPHOCYTES PERCENT AUTO 29.3 % (24.0-44.0); MEAN CORPUSCULAR HEMOGLOBIN 31.6 pg (28.0-32.0); MEAN CORPUSCULAR HGB CONC 32.9 g/dl (32.0-36.0); MEAN CORPUSCULAR VOLUME 95.9 fl (83.0-99.0); MEAN PLATELET VOLUME 9.7 fl (9.4-12.3); MONOCYTES ABSOLUTE AUTO 0.5 K/mm3 (0.0-0.8); MONOCYTES PERCENT AUTO 8.5 % (0.0-8.0); NEUTROPHILS PERCENT AUTO 56.8 % (41.0-71.0); PLATELET COUNT,PLT 237 K/mm3 (150-400); RED BLOOD CELL COUNT 4.69 M/mm3 (4.10-5.30); WHITE BLOOD CELL COUNT,WBC 5.32 K/mm3 (3.9-11.3)
[2024-10-24 13:54] LABS: BARBITURATE SCREEN,URINE NEGATIVE (CUTOFF=200); BENZODIAZEPINES SCREEN,URINE NEGATIVE (CUTOFF=150); BUPRENORPHINE SCREEN,URINE NEGATIVE (CUTOFF=10); METHADONE SCREEN, URINE NEGATIVE (CUTOFF=200); METHAMPHETAMINES SCREEN, URINE PRESUMPTIVE POSITIVE (CUTOFF=500); OXYCODONE SCREEN,URINE NEGATIVE (CUT0FF=100); THC SCREEN,URINE 20 NG/ML NEGATIVE (CUTOFF=50)
[2024-10-24 13:57] LABS: AMPHETAMINES SCREEN, URINE PRESUMPTIVE POSITIVE (CUTOFF=500)
[2024-10-24 14:00] LABS: A/G RATIO 0.8 (1-2); ALANINE AMINOTRANSFERASE,ALT 46 U/L (14-59); ALBUMIN 3.6 g/dl (3.4-5.0); ALKALINE PHOSPHATASE 121 U/L (46-116); ANION GAP 16.2 (5-15); ASPARTATE AMNIOTRANSFERASE,AST 57 U/L (15-37); BILIRUBIN TOTAL 0.4 mg/dL (0.2-1.0); BLOOD UREA NITROGEN,BUN 3 mg/dL (7-18); BUN/CREATININE RATIO 3.8 (14-18); CALCIUM 8.7 mg/dL (8.5-10.1); CARBON DIOXIDE,CO2 25 mEq/L (21-32); CHLORIDE,CL 103 mEq/L (98-107); CREATININE 0.8 mg/dL (0.55-1.02); ESTIMATED GFR 95 mL/min (>60); ETHANOL BLOOD MEDICAL 0.29 gm% (0.00); GLUCOSE RANDOM 100 mg/dL (70-99); POTASSIUM,K 3.2 mEq/L (3.5-5.1); SODIUM,NA 141 mEq/L (136-145); TSH 1.429 uIU/mL (0.358-3.74)
[2024-10-24 14:02] LABS: ACETAMINOPHEN 0 ug/mL (10-30)
[2024-10-24] MEDS: LORazepam 1 MG Tab PO ONE ×2 (14:42→16:50)
[2024-10-24] MEDS: Nicotine 14 MG/24 Hr Patch TRDERM ONE (18:32)
== END 2024-10-24 19:10 ==
LOC: JD.ED 12:02
DX: F41.9 Anxiety disorder, unspecified (principal); F19.10 Other psychoactive substance abuse, uncomplicated; I10 Essential (primary) hypertension; J45.909 Unspecified asthma, uncomplicated; E11.9 Type 2 diabetes mellitus without complications; K21.9 Gastro-esophageal reflux disease without esophagitis; F17.210 Nicotine dependence, cigarettes, uncomplicated; Z95.2 Presence of prosthetic heart valve; Z88.0 Allergy status to penicillin; Z88.5 Allergy status to narcotic agent; Z91.018 Allergy to other foods; Z91.011 Allergy to milk products; Z79.51 Long term (current) use of inhaled steroids; Z79.899 Other long term (current) drug therapy
CPT/HCPCS: 36415; 80053; 80143; 80179; 80306; 80307; 81025; 84443; 85025; 87428-QW; 99285; A9270-GY

== ENCOUNTER 2024-10-24 20:10 | Emergency (ER) | payer OTHER ==
[2024-10-24 23:54] VITALS: BP 148/98; PULSE 102
== END 2024-10-24 23:53 | disposition home or self-care (01) ==
LOC: JD.ED 20:10
DX: F10.10 Alcohol abuse, uncomplicated (principal); J45.909 Unspecified asthma, uncomplicated; K21.9 Gastro-esophageal reflux disease without esophagitis; E11.9 Type 2 diabetes mellitus without complications; Z95.2 Presence of prosthetic heart valve; Z88.0 Allergy status to penicillin; Z88.5 Allergy status to narcotic agent; Z91.011 Allergy to milk products; Z91.018 Allergy to other foods; Z79.51 Long term (current) use of inhaled steroids; Z79.899 Other long term (current) drug therapy; Y90.0 Blood alcohol level of less than 20 mg/100 ml; F41.9 Anxiety disorder, unspecified; F19.10 Other psychoactive substance abuse, uncomplicated; I10 Essential (primary) hypertension; F17.210 Nicotine dependence, cigarettes, uncomplicated
CPT/HCPCS: 36415; 80053; 80143; 80179; 80306; 80307; 81025; 84443; 85025; 87428-QW; 93010; 99283; 99284; 99285; A9270-GY

== ENCOUNTER 2025-03-11 11:00 | Emergency (ER) | payer OTHER ==
[2025-03-11] MEDS: Ondansetron 4 MG/2 ML SDV IVPUSH ONE (11:38)
[2025-03-11 11:46] LABS: BASOPHILS ABSOLUTE AUTO 0.1 K/mm3 (0.0-0.2); BASOPHILS PERCENT AUTO 0.4 % (0.0-1.0); EOSINOPHILS ABSOLUTE AUTO 0.1 K/mm3 (0.0-0.4); EOSINOPHILS PERCENT AUTO 0.6 % (0.0-6.0); IMMATURE GRAN ABSOLUTE AUTO 0.04 K/mm3 (0.00-0.05); IMMATURE GRAN PERCENT AUTO 0.3 % (0.0-0.4); LYMPHOCYTES ABSOLUTE AUTO 0.8 K/mm3 (1.0-4.8); LYMPHOCYTES PERCENT AUTO 5.2 % (24.0-44.0); MEAN PLATELET VOLUME 9.8 fl (9.4-12.3); MONOCYTES ABSOLUTE AUTO 0.5 K/mm3 (0.0-0.8); MONOCYTES PERCENT AUTO 3.5 % (0.0-8.0); NEUTROPHILS ABSOLUTE AUTO 13.0 K/mm3 (1.8-7.7); NEUTROPHILS PERCENT AUTO 90.0 % (41.0-71.0); NRBC ABSOLUTE 0.00 (0.00-0.02); NRBC PERCENT 0.0 % (0.0-0.2); PLATELET COUNT,PLT 272 K/mm3 (150-400); RED BLOOD CELL COUNT 4.41 M/mm3 (4.10-5.30); WHITE BLOOD CELL COUNT,WBC 14.46 K/mm3 (3.9-11.3)
[2025-03-11] MEDS: Thiamine 200 MG/2 ML MDV IVPUSH ONE (11:47)
[2025-03-11 12:13] LABS: A/G RATIO 0.9 (1-2); ALANINE AMINOTRANSFERASE,ALT 43.0 U/L (14-59); ASPARTATE AMNIOTRANSFERASE,AST 58.0 U/L (15-37); BILIRUBIN TOTAL 0.9 mg/dL (0.2-1.0); BLOOD UREA NITROGEN,BUN 7.0 mg/dL (7-18); CARBON DIOXIDE,CO2 24.0 mEq/L (21-32); CHLORIDE,CL 102.0 mEq/L (98-107); CREATINE KINASE,CK 249.0 U/L (26-192); CREATININE 0.8 mg/dL (0.55-1.02); EST CRCL DRUG DOSING (CG) 93.35 mL/min; ESTIMATED GFR 95.0 mL/min (>60); ETHANOL BLOOD MEDICAL 0.21 gm% (0.00); GLUCOSE RANDOM 87.0 mg/dL (70-99); POTASSIUM,K 3.6 mEq/L (3.5-5.1); PROTEIN TOTAL,TP 7.9 g/dl (6.4-8.2); SODIUM,NA 142.0 mEq/L (136-145)
[2025-03-11 12:37] LABS: INR < 0.93
[2025-03-11 14:14] VITALS: BP 124/77; PULSE 83
== END 2025-03-11 14:00 | disposition home or self-care (01) ==
LOC: JD.ED 11:00
DX: K29.20 Alcoholic gastritis without bleeding (principal); F10.129 Alcohol abuse with intoxication, unspecified; J45.909 Unspecified asthma, uncomplicated; K21.9 Gastro-esophageal reflux disease without esophagitis; E11.9 Type 2 diabetes mellitus without complications; Z91.011 Allergy to milk products; Z91.018 Allergy to other foods; Z88.6 Allergy status to analgesic agent; Z88.0 Allergy status to penicillin; Z79.51 Long term (current) use of inhaled steroids; Z79.899 Other long term (current) drug therapy; Y90.9 Presence of alcohol in blood, level not specified
CPT/HCPCS: 36415; 76705; 80053; 80307; 82550; 83690; 83735; 85025; 85610; 96361; 96365; 96375; 99284; A9270; J2405; J3411; J3475; J7030